=== PATIENT | female | born 1965 | race Caucasian/White ===

== ENCOUNTER 2017-06-27 02:25 | Inpatient (IN) | payer MEDICARE, MEDICAID ==
[~2017-06-27] VITALS: Ht 160 cm; Wt 76.2 kg
[2017-06-27] VITALS (8 sets, daily range): BP systolic 130–162; BP diastolic 70–113; PULSE 68–112; RESP 16–20; O2SAT 92–98
[~2017-06-27 02:25] MED LIST: ALPR2TAB2 PO; AMPH30CA5 PO; ESCI20TA38 PO; ESTR0.3T2 PO; KLO2T PO; METO25TA99 PO; MORP30TA PO; OXYC20TA4 PO; WARF3TAB7 PO
--- NOTE | 2017-06-27 02:51 | ED.REPORT ---
HPI-Abd Pain F 40 and Over Date of Service Jun 27, 2017 ED Provider: Gerardo Lomas MD Pt is a 51 y/o female anticoagulated on Warfarin w/ a hx of superior mesenteric venous thrombosis, HTN, Hep C, chronic pain with opiate dependence, presenting to the ED via EMS c/o gradually worsening now severe diffuse abdominal pain onset 24 hours ago. She c/o associated bloody stool, nausea, vomiting, and diarrhea. Pt denies fever. She is prescribed opiate pain medication and last used them once she began experiencing this pain. She does have a history of heroin use and states she has not used recently. Nursing Notes Stated Complaint: ABDOMEN PAIN Chief Complaint: Female Abdominal Pain Nursing Notes Reviewed: Yes Allergies: Coded Allergies: duloxetine (Verified Allergy, Severe, Hallucinations, 02/22/16) Suicide Ideations mirtazapine (Verified Allergy, Severe, Hallucinations, 02/22/16) Suicide Ideations meloxicam (Verified Allergy, Intermediate, swollen face, puffy cheeks, ) Sulfa (Sulfonamide Antibiotics) (Verified Allergy, Unknown, 02/20/16) lamotrigine (Verified Allergy, Unknown, 06/27/17) meperidine (Verified Allergy, Unknown, 02/20/16) Uncoded Allergies: ANTIDEPRESSANTS (Allergy, Unknown, 12/04/15) Scheduled Escitalopram Oxalate (Escitalopram Oxalate) 20 Mg Tablet 20 MG PO DAILY Estrogens, Conjugated (Premarin) 0.3 Mg Tablet 0.3 MG PO DAILY Metoprolol Succinate ER (Metoprolol Succinate ER) 25 Mg Tab.er.24h 12.5 MG PO QAM Warfarin Sodium (Warfarin Sodium) 3 Mg Tablet 3 MG PO Sun,Sun,Leora,Sun,Sun Warfarin Sodium (Warfarin Sodium) 3 Mg Tablet 6 MG PO Sun,Sun Scheduled PRN Alprazolam (Xanax) 2 Mg Tablet 2 MG PO TID PRN PRN For Anxiety Clonazepam (Clonazepam) 2 Mg Tab 6 MG PO HS PRN PRN For Anxiety Dextroamphetamine/Amphetamine ER (Adderall XR) 30 Mg Cap.er.24h 60 MG PO QAM PRN PRN For narcolepsy Morphine Sulfate (Morphine Sulfate) 30 Mg Tablet 30 MG PO Q12H PRN PRN For Pain oxyCODONE (oxyCODONE) 20 Mg Tablet 20 MG PO Q4H PRN PRN For Pain General Time Seen by MD: 02:50 Chief Complaint Abdominal pain Hx Obtained From: Patient, EMS Arrived By: Ambulance Sudden in Onset?: No Onset Occurred: 21 - 23 hours ago Symptom Duration: Since onset Progression since Onset: Gradually worsening Location: : Diffuse Quality: Painful Severity: Current: Severe Severity: Maximum: Severe Past Medical History Past Medical History Asthma Hypertension narcolepsy subarachnoid hemorrhage Hepatitis C positive Hx superior mesenteric venous thrombosis - anticoagulated on Warfarin Hx prior heroin abuse Hx UTI Depression Anxiety Chronic pain with opiate dependence Past Surgical History Reports: Hysterectomy Reports: Back/neck surgery Smoking History Current Every Day Smoker, Current Some Day Smoker Social History Alcohol Use: Denies alcohol use Drug Use: In recovery Ambulatory Status Independent Review of Systems Constitutional: Denies: Fever GI: Reports: Abdominal pain, Bloody/tarry stool, Diarrhea, Nausea, Vomiting Complete sys rev & neg: except as marked. Physical Exam Vital Signs Vital Signs (First) Date Time Temp Pulse Resp B/P Pulse Ox O2 Delivery O2 Flow Rate FiO2 06/27/17 02:44 36.5 112 20 162/113 98 Room Air Initial VS: Reviewed, Vital signs abnormal Head / Eyes: Atraumatic, Normocephalic Neck: Supple, Full range of motion Extremities: Vascular intact, Neuro intact, No swelling Skin: Warm, Dry, No cyanosis Neurologic: Alert, Oriented, Nonfocal Psychiatric: Mood/affect normal, Behavior normal, Normal thought content General/Constitutional: Awake, Alert, Cooperative, Not toxic appearing Distress / Hydration: Positive: Dehydration moderate, Distress severe ( secondary to pain) Appearance / Presentation: Positive: In pain, Uncomfortable Moaning in pain Respiratory / Chest: Breath sounds NL, Breath sounds = bilat, No respiratory distress, No rales, No rhonchi, No wheezing Cardiovascular: Regular rhythm, Heart sounds NL, No murmurs Heart Rate / Rhythm: Positive: Tachycardia Abdomen: Atraumatic, Soft, No guarding, No distention Tenderness/Guarding/Rebound: Positive: Tender diffuse Pain out of proportion to exam Back: Full range of motion, Painless range of motion Interpretation & Diagnostics Lab Results Interpretation Result Diagram: 06/27/17 0255 06/27/17 0255 Test 06/27/17 02:55 White Blood Count 13.5th/mm3 (3.8-10.1) Red Blood Count 6.23mil/mm3 (3.90-5.20) Hemoglobin 16.7g/dL (12.0-15.6) Hematocrit 48.5% (35.0-46.0) Mean Corpuscular Volume 77.8fL (81-100) Mean Corpuscular Hemoglobin 26.8pg (27.0-35.0) Mean Corpuscular Hemoglobin Concent 34.4% (32.0-37.0) Red Cell Distribution Width 14.0% (12.3-15.4) Platelet Count 238bil/L (150-400) Neutrophils (%) (Auto) 74.0% (40-74) Lymphocytes (%) (Auto) 15.5% (14-46) Monocytes (%) (Auto) 10.0% (4-12) Eosinophils (%) (Auto) 0.1% (0-5) Basophils (%) (Auto) 0.1% (0-3) Prothrombin Time 11.5sec (8.1-12.5) Prothromb Time International Ratio 1.07ratio Sodium Level 133mEq/L (134-144) Potassium Level 4.9mEq/L (3.5-5.2) Chloride Level 98mEq/L (97-108) Carbon Dioxide Level 20mmol/L (18-29) Blood Urea Nitrogen 19mg/dL (6-24) Creatinine 1.00mg/dL (0.57-1.00) Estimat Glomerular Filtration Rate 83mL/min (>59) Glucose Level 145mg/dL (60-99) Calcium Level 10.0mg/dL (8.5-10.1) Magnesium Level 1.9mg/dL (1.6-2.6) Total Bilirubin 0.5mg/dL (0.0-1.2) Aspartate Amino Transf (AST/SGOT) 28U/L (0-50) Alanine Aminotransferase (ALT/SGPT) 17U/L (0-32) Alkaline Phosphatase 78U/L (25-150) Total Protein 7.2g/dL (6.4-8.4) Albumin 3.3g/dL (3.4-5.0) Lipase 19U/L (13-60) CT Abd / Pelvis Interpretation Conclusion: 1. Enteritis involving a few ileal bowel loops in the lower abdomen and pelvis may relate to infection or inflammatory bowel. Mild abdominopelvic ascites. 2. Normal appendix. No free air, abscess, or bowel obstruction. 3. Cholelithiasis. Small renal cysts. Interpreted by Christiano Strong MD Study type: Abdominal CT IV contrast Interpretation / Wet Read by: Interpret - Radiologist Re-Eval/Medical Decision Med Decision/Clinical Course 51-year-old female with severe abdominal pain. She has a history of mesenteric vein thrombosis. She has a mild elevation of her white blood count but no chemistry abnormalities. CT scan of her abdomen showed an area of enteritis and ascites. She was given 2 g of Zosyn. She will be admitted to the hospitalist service for pain control and further evaluation. Source of Hx: Old records, EMS Re-Evaluation/Progress : Time of Eval: 05:32 Re-Evaluation/Progress Note: Pt rechecked. Appears much better, in no distress, pain managed. Informed pt of need for admission. Pt understands and agrees with plan for admission. All questions addressed. Consultation : Referral / Consult Name: Ha Ruby MD Consulted With: Hospitalist Call Returned at: 05:52 Associate Medical Director: Will see patient, Agrees with eval, Agrees with plan, Accepts admit Note: Recommends Zosyn. Counseled Regarding: Diagnosis, Lab results, Need for admission Discharge & Departure Primary Impression: Enteritis Additional Impressions: Anticoagulated on warfarin Diffuse abdominal pain Dehydration Ascites Ascites type: other type Qualified Code: R18.8 - Other ascites Disposition: ADMITTED TO HOSPITAL Discharge Condition All VS Reviewed: Yes Condition: Improved Referrals: STEPHENIE VAZQUEZ (PCP) Scribe Attestation Portions of this note were transcribed by Kenneth Monae. I, Dr. Lomas personally performed the history, physical exam and medical decision-making; I reviewed and confirmed the accuracy of the information in the transcribed note. copies to: STEPHENIE VAZQUEZ Howard L MD Jun 27, 2017 02:51 KENNETH MONAE Jun 27, 2017 02:58
[2017-06-27] MEDS ORDERED: Ondansetron 2 mg/mL 2 mL Inj IVPUSH PRN ×2 (02:55→07:40)
[2017-06-27] MEDS: HYDROmorphone 1 mg/mL Inj IVPUSH PRN ×10 (03:10→18:43)
[2017-06-27 03:18] LABS: BASOPHILS % (AUTO) 0.1 % (0-3); EOSINOPHILS % (AUTO) 0.1 % (0-5); Mean Corpuscular Hemoglobin 26.8 pg (27.0-35.0); Mean Corpuscular Volume 77.8 fL (81-100); Platelet Count 238 bil/L (150-400)
[2017-06-27 04:02] LABS: Magnesium 1.9 mg/dL (1.6-2.6)
[2017-06-27 04:04] LABS: INR 1.07 ratio
[2017-06-27] MEDS ORDERED: Piperacillin-Tazo 3.375 Gm Inj 3.375 GM in Dextrose 5% Minibag Plus 50 ML IV ONE (06:20)
[2017-06-27] MEDS: 0.9% Sodium Chloride 1,000 ML IV SCH ×2 (07:37→17:33)
[2017-06-27] MEDS ORDERED: Polyethylene Glycol (PEG) 17 Gm Powder PO PRN (07:40)
[2017-06-27] MEDS ORDERED: Alum-Mag Hydrox-Simeth 30 mL Suspension PO PRN (07:40)
--- NOTE | 2017-06-27 08:53 | DRSVH ---
PROCEDURE: CT ABDOMEN AND PELVIS WITH CONTRAST (PNL-7102) INDICATIONS: severe abd pain TECHNIQUE: After the administration of intravenous contrast, 5 mm thick sections acquired from the diaphragm to the symphysis. 5 mm coronal and sagittal reformats were acquired. For radiation dose reduction, the following was used: automated exposure control, adjustment of mA and/or kV according to patient siz e. COMPARISON: The CT abdomen and pelvis 12/04/2015 FINDINGS: Preliminary report by [facility] manager radiology Image quality: Excellent. ABDOMEN: Lung bases: Mild bibasilar atelectasis.. Heart size is normal. Solid organs: Liver and spleen are normal in size and enhancement. The spleen measures 7.6 x 10.1 x 12.7 cm. Gallbladder contains a noncalcified gallstone. Normal gallbladder wall thickness. Biliary sy stem is non dilated. Pancreas enhances normally. No adrenal nodules. Kidneys demonstrate normal si ze and enhancement, without hydronephrosis. A few renal hypodensities are unchanged. Minimal left per inephric fat stranding again noted. Peritoneum and bowel: Small bowel shows abnormal wall thickening and adjacent fat stranding in the in fraumbilical midline.. Normal appendix. Normal colon. Moderate free fluid, no free air. Nodes and vessels: No retroperitoneal or mesenteric adenopathy by size criteria. Aorta and inferior vena cava are normal in size. Miscellaneous: Small fat filled umbilical hernia. PELVIS: Genitourinary: Bladder wall thickness is normal. Uterus is surgically absent. No adnexal mass. Miscellaneous: No inguinal hernias or adenopathy. Bones: No suspicious bony lesions. No vertebral body compression fractures. IMPRESSION: 1. Focal ileitis with inflamed small bowel loops inferior to the umbilicus in midline, sparing the te rminal ileum. Moderate ascites. No bowel obstruction or perforation. Normal appendix. 2. Cholelithiasis without evidence of cholecystitis. 3. Status post hysterectomy. Findings are concordant with the preliminary report. Dictated by: Bello Harrison M.D. on 06/27/2017 at 8:38 Approved by: Bello Harrison M.D. on 06/27/2017 at 8:51
[2017-06-27 11:22] LABS: APPEARANCE,URINE HAZY (CLEAR,HAZY); COLOR,URINE YELLOW (YELLOW); OCCULT BLOOD,URINE NEGATIVE (NEGATIVE); UROBILINOGEN,URINE NORMAL (NORMAL)
--- NOTE | 2017-06-27 13:02 | NUR ---
Pain Pt reporting abdominal pain. She has been receiving IV Dilaudid. Left AC IV infiltrated so IV removed. 22 gauge to right forearm. Administered 1mg IV with no abdominal pain relief. Report given to Keanu Cardona on [facility] and adv if he could contact hospitalist to adv pain regimen not alleviated pts discomfort. Pt is AOX3. Pt aware of plan of care.
--- NOTE | 2017-06-27 13:06 | NUR ---
Admission Weight Weight not obtained. Patient came to room in a bed and unable to get patient out of bed due to pain. When pain settles down I will pass onto the [facility] that weight needs to be obtained and bed properly zeroed. Addendum: 06/27/17 at 1308 by CHARLES HARLEY [facility] Amended: Links added.
--- NOTE | 2017-06-27 13:12 | NUR ---
pain uncontrolled pain. per Dr Kamara it is ok to give another 1mg of Dilaudid.
[2017-06-27] MEDS ORDERED: MORP-32 PO (13:15)
[2017-06-27] MEDS ORDERED: ALPR2TAB6 PO (13:16)
[2017-06-27] MEDS ORDERED: AMPH30CA PO (13:17)
--- NOTE | 2017-06-27 13:25 | NUR ---
admit pt is admitted from ER for ABD pain. pt arrived to [facility] complaining of pain 07/05. Per MD ok to give pt another 1mg of dilaudid. tele not started due to the question of its necessity. This RN will ask MD if they feel it is needed. Admit nurse in room with pt.
--- NOTE | 2017-06-27 15:59 | PCM.HPMED ---
Subjective Date of Service Jun 27, 2017 Primary Provider: Admitting Physician: Ha Ruby MD Primary Care Physician: Asha Napier Attending Physician: Ha Ruby MD Admit Status: From the Emergency Department, Full Admit, Remote Telemetry Chief Complaint: Periumbilical abdominal pain/one day Bloody diarrhea/one day History of Present Illness: 51-year-old lady with past medical history of superior mesenteric venous thrombosis on warfarin, HTN, narcolepsy, history of Hep C completed [facility], chronic pain with opiate dependence, history of intracranial bleeding presented to the emergency room due to epigastric abdominal pain and bloody data of one day. Patient states yesterday she developed sudden onset, periumbilical, intermittent , stabbing severe pain . She also noted several episodes of bloody watery diarrhea yesterday which prompted ED visit. Denies fever. Denies cough. Denies dyspnea. Ed course: Initial HR 112, BP 162/113, WBC 13.5, hemoconcentrated hemoglobin at 16.7, pro calcitonin elevated at 2.36 Sodium 133, lactate negative at 0.8, INR 1.07 CT Focal ileitis with inflamed small bowel loops inferior to the umbilicus in midline, sparing the terminal ileum Zosyn given and admission requested Review of Systems: Comprehensive review of systems performed, pertinent positives and negatives included in history of present illness Allergies Coded Allergies: duloxetine (Verified Allergy, Severe, Hallucinations, 06/27/17) Suicide Ideations mirtazapine (Verified Allergy, Severe, Hallucinations, 06/27/17) Suicide Ideations meloxicam (Verified Allergy, Intermediate, swollen face, puffy cheeks, 06/27) Sulfa (Sulfonamide Antibiotics) (Verified Allergy, Unknown, 06/27/17) lamotrigine (Verified Allergy, Unknown, 06/27/17) meperidine (Verified Allergy, Unknown, 06/27/17) Uncoded Allergies: ANTIDEPRESSANTS (Allergy, Unknown, 12/04/15) Home Medications Escitalopram Oxalate (Escitalopram Oxalate) 20 Mg Tablet 20 MG PO DAILY Estrogens, Conjugated (Premarin) 0.3 Mg Tablet 0.3 MG PO DAILY Metoprolol Succinate ER (Metoprolol Succinate ER) 25 Mg Tab.er.24h 12.5 MG PO QAM Warfarin Sodium (Warfarin Sodium) 3 Mg Tablet 3 MG PO Mon,Wed,Leora,Fri,Sun Warfarin Sodium (Warfarin Sodium) 3 Mg Tablet 6 MG PO Tue,Sat Scheduled PRN Alprazolam (Xanax) 2 Mg Tablet 2 MG PO TID PRN PRN For Anxiety Clonazepam (Clonazepam) 2 Mg Tab 6 MG PO HS PRN PRN For Anxiety Dextroamphetamine/Amphetamine ER (Adderall XR) 30 Mg Cap.er.24h 60 MG PO QAM PRN PRN For narcolepsy Morphine Sulfate (Morphine Sulfate) 30 Mg Tablet 30 MG PO Q12H PRN PRN For Pain oxyCODONE (oxyCODONE) 20 Mg Tablet 20 MG PO Q4H PRN PRN For Pain PMH Asthma Hypertension narcolepsy subarachnoid hemorrhage Hepatitis C positive Hx superior mesenteric venous thrombosis - anticoagulated on Warfarin Hx prior heroin abuse Hx UTI Depression Anxiety Chronic pain with opiate dependence Surgical History Hysterectomy Back/neck surgery Family History grandma with stroke Multiple family members with history of DVTs including 2 grandparents and uncles Social History Hx Alcohol Use: No Hx Substance Use: No Hx Tobacco Use: Yes Smoking Status: Current Every Day Smoker, Current Some Day Smoker Exam Vital Signs Vital Sign - Last Date Time Temp Pulse Resp B/P Pulse Ox O2 Delivery O2 Flow Rate FiO2 06/27/17 13:53 Supplement Oxygen 06/27/17 13:05 36.8 87 20 155/95 93 06/27/17 09:47 2.00 Exam Gen. patient is lying comfortably in hospital bed HEENT: Head is normocephalic atraumatic, Pupils equal and reactive, extraocular movements intact, Lungs clear to auscultation bilaterally Heart regular rate and rhythm without murmurs gallops or rubs Abdomen infraumbilical tenderness. Extremities pulses are present dorsalis pedis posterior tibialis and radial. tSkin is warm and dry there are no rashes, Psych alert and oriented to person place and time Neuro cranial nerves II through XII are grossly intact Lymph: There is no lymphadenopathy appreciated in the cervical supra infraclavicular regions : no leggett Lab and Diagnostics Result Diagram: 06/27/1725406/27/17254 X-Rays, CTs and MRIs PROCEDURE: CT ABDOMEN AND PELVIS WITH CONTRAST ([id number]) INDICATIONS: severe abd pain IMPRESSION: 1. Focal ileitis with inflamed small bowel loops inferior to the umbilicus in midline, sparing the terminal ileum. Moderate ascites. No bowel obstruction or perforation. Normal appendix. 2. Cholelithiasis without evidence of cholecystitis. 3. Status post hysterectomy. Findings are concordant with the preliminary report. Dictated by: Bello Harrison M.D. on 06/27/2017 at 8:38 Assessment & Plan 51-year-old lady with past medical history of superior mesenteric venous thrombosis on warfarin, HTN, narcolepsy, history of Hep C completed [facility], chronic pain with opiate dependence, history of intracranial bleeding presented to the emergency room due to epigastric abdominal pain and bloody data of one day. # Acute Ileitis ,poa -Infectious versus ischemic -Most likely infectious given leukocytosis and elevated procal . Ischemic due to distal visceral venous thromboses is also possible given his history of mesenteric thromboses, subtherapeutic INR, sudden onset of symptoms, bloody diarrhea, pain out of proportion to tenderness. Normal lactate and bicarbonate is against ischemic process. hold of empiric heparin drip . Infection can be due to C.dif or others -She received Zosyn in ED, continue with that -Stool for C. difficile requested. Hold off empiric by mouth vancomycin -NS at 100ml /h -trend lactate and will start heparin drip and consult surgery if abnormal. Continue home warfarin for now -Pain control with Dilaudid, Zofran when necessary for nausea -Consulted GI # History of mesenteric venous thromboses with subtherapeutic INR -Resume warfarin # History of hepatitis C, completed treatment and presumed cured #History of hypertension -Resume home meds #History of opioid dependence -Pain control as above #History of asthma, stable #History of narcolepsy -Continue adderral Patient admitted under inpatient status with expected length of stay > 2 midnights for severity of present symptoms, complexities of treatment plan and risk for adverse events full code Resuscitation Status: CPR: Attempt Resuscitation copies to: TAYLOR,Cristofer Levy MD Jun 27, 2017 15:59
[2017-06-27 16:38] LABS: BASOPHILS % (AUTO) 0.2 % (0-3)
[2017-06-27 16:45] LABS: EOSINOPHILS % (AUTO) 0.2 % (0-5); MONOCYTES % (AUTO) 10.7 % (4-12); Mean Corpuscular Hemoglobin 26.9 pg (27.0-35.0); NEUTROPHILS % (AUTO) 69.6 % (40-74); Platelet Count 216 bil/L (150-400)
[2017-06-27] MEDS: Piperacillin-Tazo 3.375 Gm Inj 3.375 GM in Dextrose 5% Minibag Plus 50 ML IV SCH ×2 (16:59→23:37)
--- NOTE | 2017-06-27 17:36 | PCM.CHPMED ---
Subjective Date of Service: Jun 27, 2017 Provider requesting consult: Cristofer Kamara MD Primary Physician: Admitting Physician: Ha Ruby MD Primary Care Physician: Asha Napier Attending Physician: Ha Ruby MD Chief Complaint: Chief Complaint: Abdominal pain, nausea, vomiting, diarrhea History of Present Illness: Gastroenterology Consult Note Grace Pagan is a 51-year-old female with past medical history significant for superior mesenteric venous thrombosis, hepatitis C status post Harvoni treatment, subarachnoid hemorrhage, and chronic opioid use who presents with nausea, vomiting, and diarrhea. Patient reports that symptoms began on Sunday very shortly after eating prawns. Patient states that pain has been between 8- 10 out of 10 since Sunday. It is a constant pain that is bandlike at the level of the umbilicus. There are no alleviating factors and appears that movement somewhat worsens the pain. Pain has slightly improved since being in the hospital with IV pain medications. Of note patient's friend was also having the problems and had some similar but more mild symptoms that resolved without intervention. She has not had any oral intake since Sunday as she has not been able to keep anything down. She states that her last episode of emesis and diarrhea was just prior to the ambulance arriving around 0300 today. Patient is typically constipated as she is on chronic narcotics so this frequent stooling is very atypical. She notes that there is blood when she wipes but nothing mixed in with her stool. She denies black tarry stools or hematemesis. Patient has no family history of inflammatory bowel disease, colon cancer, or celiac disease. She has never had a colonoscopy or an EGD. Patient denies any recent weight loss, fever, or chills. Review of Systems: Comprehensive review of systems was conducted with the patient and found to be negative except as noted above in HPI. PMH Past Medical History Asthma Hypertension Narcolepsy Subarachnoid hemorrhage Hepatitis C positive s/p Harvoni treatment Superior mesenteric venous thrombosis - subtherapeutic on Warfarin Prior heroin abuse Depression Anxiety Chronic pain with opiate dependence Surgical History Hysterectomy Back/neck surgery Home Medications Escitalopram Oxalate (Escitalopram Oxalate) 20 Mg Tablet 20 MG PO DAILY Estrogens, Conjugated (Premarin) 0.3 Mg Tablet 0.3 MG PO DAILY Metoprolol Succinate ER (Metoprolol Succinate ER) 25 Mg Tab.er.24h 12.5 MG PO QAM Warfarin Sodium (Warfarin Sodium) 3 Mg Tablet 3 MG PO Mon,Wed,Leora,Fri,Sun Warfarin Sodium (Warfarin Sodium) 3 Mg Tablet 6 MG PO Tue,Sun Scheduled PRN Alprazolam (Xanax) 2 Mg Tablet 2 MG PO TID PRN PRN For Anxiety Clonazepam (Clonazepam) 2 Mg Tab 6 MG PO HS PRN PRN For Anxiety Dextroamphetamine/Amphetamine ER (Adderall XR) 30 Mg Cap.er.24h 60 MG PO QAM PRN PRN For narcolepsy Morphine Sulfate (Morphine Sulfate) 30 Mg Tablet 30 MG PO Q12H PRN PRN For Pain oxyCODONE (oxyCODONE) 20 Mg Tablet 20 MG PO Q4H PRN PRN For Pain Allergies: Coded Allergies: duloxetine (Verified Allergy, Severe, Hallucinations, 06/27/17) Suicide Ideations mirtazapine (Verified Allergy, Severe, Hallucinations, 06/27/17) Suicide Ideations meloxicam (Verified Allergy, Intermediate, swollen face, puffy cheeks, 06/27) Sulfa (Sulfonamide Antibiotics) (Verified Allergy, Unknown, 06/27/17) lamotrigine (Verified Allergy, Unknown, 06/27/17) meperidine (Verified Allergy, Unknown, 06/27/17) Uncoded Allergies: ANTIDEPRESSANTS (Allergy, Unknown, 12/04/15) Family History Family History Grandma with CVA Multiple family members with history of DVTs including 2 grandparents and uncles Social History Hx Alcohol Use: NoHx Substance Use: NoHx Tobacco Use: Yes Smoking Status: Current Every Day Smoker Current Some Day Smoker Exam Vital Signs Vital Sign - Last Date Time Temp Pulse Resp B/P Pulse Ox O2 Delivery O2 Flow Rate FiO2 06/27/17 16:57 36.9 75 20 152/87 95 Room Air 06/27/17 09:47 2.00 General: Alert, Oriented X3, Moderate Distress Head: Normal Eyes: Scleral Anicteric Mouth: Mucous Membranes Dry Neck: Supple Cardiovascular: Regular Rate/Rhythm, No Murmurs/Rubs/Gallops Pulses: Radial Abdomen: Tender, Non-distended, Guarding, Normoactive bowel tones, Other ( rebound) Musculoskeletal: Unremarkable Extremities: No cyanosis/clubbing/edma bilat Neurological: Grossly Neurologically Intact, Cranial Nerves 2-12 Intact Lab and Diagnostics Result Diagram: 06/27/17 1620 06/27/17 1620 X-Rays, CTs and MRIs CT ABDOMEN AND PELVIS WITH CONTRAST IMPRESSION: 1. Focal ileitis with inflamed small bowel loops inferior to the umbilicus in midline, sparing the terminal ileum. Moderate ascites. No bowel obstruction or perforation. Normal appendix. 2. Cholelithiasis without evidence of cholecystitis. 3. Status post hysterectomy. Findings are concordant with the preliminary report. Dictated by: Bello Harrison M.D. on 06/27/2017 at 8:38 Approved by: Bello Harrison M.D. on 06/27/2017 at 8:51 Assessment & Plan Assessment Grace Pagan is a 51-year-old female with past medical history significant for superior mesenteric venous thrombosis, hepatitis C status post Harvoni treatment, subarachnoid hemorrhage, and chronic opioid use who presents with nausea, vomiting, and diarrhea. Patient's history and physical exam is concerning for ischemic pathology but with her recent ingestion of prawns just prior to symptom onset infectious causes cannot be excluded. Dr. Spear was contacted and we discussed the CT findings of focal ileitis with inflamed small bowel inferior to the umbilicus in midline. We also discussed her history of SMA venous thrombosis and to Dr. Spear's best assessment the celiac,, SMA, and SMV have no obvious sign of occlusion. He suggested that possibly a doppler ultrasound may provide additional information but is rather skeptical of the benefit. Patient's lactic acid was 0.8 initially and repeat was 0.9. She has a mild leukocytosis with normal differential interestingly but an elevated procalcitonin. Due to the patient's significnat pain and peritoneal signs on exam case was also discussed with surgeon, Dr. Weathers, and he agrees to see the patient. Recommendations: - Patient with peritoneal signs. Surgery has been notified. - Recommend starting Lovenox as patient is subtherapeutic - D-dimer ordered and pending. - Awaiting stool sample from patient to send for PCR. - Continue to monitor lactic acid. - Pain management per primary team. - May consider abdominal doppler ultrasound although unsure that this will add to the clinical picture Thank you for involving us in this patient's care. Problems: Pain Evaluation: Pain not Controlled Resuscitation Status: CPR: Attempt Resuscitation Attending Statement Patient seen and examined. Agree with assessment and plan as described by Dr Ball. Exam was fairly impressive. I discussed case with Dr Weathers who agreed to see her. D-dimer was markedly elevated and (along with Dr Weathers) recommended anticoagulation Although no obvious SMV thrombosis is seen at CT with patient's history and the acute presentation mesenteric venous thrombosis - perhaps a little closer to the bowel remains in the differential. Acute infectious gastroenteritis remains in the differential. The normal serial lactate is somewhat reassuring, but an element of closed loop obstruction still needs to be considered. Based on the acute presentation, the possibility of crohn's would be considered quite unlikely. Stool PCR pending next bowel movement. JAMES BALL DO Jun 27, 2017 17:35 Ron Ley MD Jun 27, 2017 23:03
[2017-06-27] MEDS ORDERED: Heparin 5,000 Unit/mL Inj IVPUSH PRN (17:45)
[2017-06-27] MEDS: Heparin 25K Unit/500mL 0.45 NS 25,000 UNIT in IV Premix 1 EACH IV SCH (18:11)
[2017-06-27] MEDS ORDERED: Morphine ER 15 mg (MS Contin) Tablet PO SCH (20:30)
--- NOTE | 2017-06-27 20:36 | NUR ---
Case Management: ROSENDO explained to patient at 2024, all questions answered. Signed copy placed in chart, copy given to patient. Kathy Coe RN
--- NOTE | 2017-06-27 23:03 | CONS ---
[address] [address] CONSULTATION REPORT PATIENT: MARIO STARR : 1965 MR#: [id number] ADMIT: 06/27/2017 JOB ID: [id number] DATE OF SERVICE: 06/27/2017 CHIEF COMPLAINT: A 51-year-old lady with severe abdominal pain, seen in consultation at the request of Ron Ley MD, and Cristofer Kamara MD. HISTORY OF PRESENT ILLNESS: The patient is a 51-year-old lady who was diagnosed with superior mesenteric venous thrombosis around four years ago in [place] when she went to the hospital with abdominal pain and was started on chronic anticoagulation with warfarin. She did not have any operations at that time. Since then, she has had intermittent episodes of abdominal pain but nothing like what she has now prompting her to come to the emergency department last night. She developed severe abdominal pain with violent vomiting and bloody diarrhea and she is unable to take her warfarin for the last three days because of the illness. Before that, she believes her INR was 1.9. Any movement seems to exaggerate her pain. She has not had any more vomiting or bowel movements since she came to the emergency department. OTHER MEDICAL PROBLEMS: 1. Asthma. 2. Hypertension. 3. Epilepsy. 4. Subarachnoid hemorrhage. 5. Hepatitis C treated with Harvoni. 6. Depression. 7. Anxiety. 8. Chronic pain. PRIOR OPERATIONS: 1. Hysterectomy. 2. Back surgery. FAMILY HISTORY: Grandmother had stroke. Multiple family members have history of deep vein thrombosis, including two grandparents and uncles. SOCIAL HISTORY: She does smoke. She does not consume alcohol. She had problems with IV drug abuse a long time ago in her teens, but she has been clean for a long time. MEDICATIONS AT HOME: 1. Escitalopram. 2. Estrogens. 3. Metoprolol. 4. Warfarin. 5. Alprazolam. 6. Clonazepam. 7. Dextroamphetamine. 8. Morphine. 9. Oxycodone. ALLERGIES: 1. DULOXETINE. 2. MIRTAZAPINE. 3. MELOXICAM. 4. SULFA. 5. LAMOTRIGINE. 6. MEPERIDINE. REVIEW OF SYSTEMS: A 12-point review of systems negative other than the pertinent positives noted in the history of present illness and other medical problems. INVESTIGATIONS: WBC 12.5, hemoglobin 14.7, platelet count 216. Creatinine 1.02, glucose 118. Normal liver function studies. Albumin 2.9. Lactic acid 0.9. Procalcitonin 2.36. INR 1.07. D-dimer 12.44. CT abdomen and pelvis June 27, 2017, showed focal ileitis with inflamed small bowel loops sparing the terminal ileum, moderate ascites. No obvious bowel obstruction or perforation. Normal looking appendix. Cholelithiasis. PHYSICAL EXAMINATION: GENERAL: A 51-year-old lady in moderate distress. Temperature 36.9, pulse 84, respiratory rate 16, blood pressure 156/97, saturating 92% on room air. Eyes: Normal pupils, conjunctivae. Ears, nose, and throat: Normal external appearance. Neck: No adenopathy or jugular venous distention. Respiratory: Normal effort, clear to auscultation. Cardiovascular: Regular rate and rhythm. Chest/breast exam deferred. Gastrointestinal: Diffusely tender to palpation, more so in the lower abdomen with signs of peritonitis. Neurologic: No gross deficits. Psych: Alert, appropriate. Musculoskeletal: Normal strength in extremities. ASSESSMENT AND PLAN: A 51-year-old lady with focal small bowel inflammation highly concerning for mesenteric venous thrombosis in small vessels. She is prone to thrombotic episodes so would recommend immediate anticoagulation with heparin, n.p.o., broad-spectrum antibiotics, and pain control with IV pain medication. We will follow her with two view abdominal x-rays every 12 hours to rule out perforation. It might also be worth looking into other possible sources of embolism, including looking into /obtaining an echocardiogram. At this point, she is in a lot of pain and we will follow her clinically, but if she deteriorates or does not improve with anticoagulation she might very well require operative intervention to evaluate her bowel and even potentially leading to a bowel resection. I explained the plan to the patient and she understands and is comfortable with that. We will continue to follow closely, but please call us if there are any questions or concerns. KAY
[2017-06-28] VITALS (9 sets, daily range): BP systolic 135–173; BP diastolic 78–97; PULSE 66–76; RESP 14–20; O2SAT 92–97
[2017-06-28] MEDS: HYDROmorphone PCA 0.2 mg/mL 30 mL Inj IV PRN ×3 (00:13→20:33)
--- NOTE | 2017-06-28 03:51 | NUR ---
Pain Pt continued to complain of pain with PO 20mg Roxicodone. Began DOOR PANELER with 0.4 mg dose, 10 min lockout and 2.4mg/hr max dose, with good results. Pt slept well with pain machine. Up to bedside commode, noted pain with movement.
[2017-06-28 06:49] LABS: BASOPHILS % (AUTO) 0.3 % (0-3); EOSINOPHILS % (AUTO) 1.6 % (0-5); MONOCYTES % (AUTO) 8.8 % (4-12); Mean Corpuscular Hemoglobin 27.1 pg (27.0-35.0); Mean Corpuscular Volume 81.6 fL (81-100); NEUTROPHILS % (AUTO) 62.5 % (40-74); Platelet Count 193 bil/L (150-400)
[2017-06-28 07:01] LABS: INR 1.24 ratio
[2017-06-28 07:12] LABS: Magnesium 1.9 mg/dL (1.6-2.6)
[2017-06-28] MEDS ORDERED: Estrogens Conjugated 0.3 mg Tablet PO SCH (08:30)
[2017-06-28] MEDS ORDERED: MeTOProlol XL 25 mg ER24 Tablet PO SCH (08:30)
--- NOTE | 2017-06-28 08:30 | NUR ---
Heparin gtt/IV IV infiltrated this AM. Heparin gtt stopped at approx. 0730. 0600 Heparin PTT 51.0, infusion running at 21 units/kg/hr when stopped. Pharmacist consulted. Instructed to resume Heparin gtt at current dose and draw Heparin PTT 2 hours after resuming. No IV access at this time. IV therapy contacted. Addendum: 06/28/17 at 0955 by SID HERRON RN [id number]: Heparin gtt resumed at 21 units/kr/hr.
--- NOTE | 2017-06-28 08:53 | DRSVH ---
PROCEDURE: X-RAY ABDOMEN WITH ERECT AND/OR DECUBITUS VIEWS ([id number]) INDICATIONS: ? perforation TECHNIQUE: 2 views of the abdomen were acquired. COMPARISON: [facility], CT, CT ABD PELVIS W CON, 06/27/2017, 4:29. FINDINGS: Surgical changes and devices: None. Bowel: There is suggestion of a small amount of subdiaphragmatic free air in the left upper quadrant . There are multiple nondistended small bowel loops measuring up to 2.5 cm in the mid abdomen with a ssociated air-fluid levels and a left-sided predominance. There is a paucity of gas in the colon. Soft tissues: No suspicious calcifications. The visualized lung bases demonstrate a small left pleur al effusion with bibasilar consolidation or atelectasis, left greater than right. Bones: No suspicious bony abnormalities. IMPRESSION: 1. Lucency in the left upper quadrant beneath the left hemidiaphragm suspicious for pneumoperitoneum but evaluation is limited due to left basilar lung findings. Recommend a right lateral decubitus vi ew for further evaluation. Findings were discussed with Dr. Kuhn on 06/28/17 8:45 AM. 2. Mildly dilated small bowel loops with air-fluid levels and a paucity of gas in the colon compatib le with small bowel obstruction likely related to the segmental enteritis seen on CT. Dictated by: Juan Luis Harris M.D. on 06/28/2017 at 8:36 Approved by: Juan Luis Harris M.D. on 06/28/2017 at 8:51
[2017-06-28] MEDS: Piperacillin-Tazo 3.375 Gm Inj 3.375 GM in Dextrose 5% Minibag Plus 50 ML IV SCH ×2 (09:49→17:33)
[2017-06-28] MEDS: 0.9% Sodium Chloride 1,000 ML IV SCH ×2 (09:49→13:37)
--- NOTE | 2017-06-28 10:59 | NUR ---
Case Management: MONCHO delivered and explained to pt. and son of patient at bedside. Signed original placed in chart. Copy left at bedside. Kaye Muir RN Addendum: 06/28/17 at 1102 by KAYE MUIR CM Disregard note: wrong patient
--- NOTE | 2017-06-28 11:02 | NUR ---
Case Management: [facility] delivered and explained to pt. Signed original placed in chart. Copy left at bedside. Kaye Martinez RN
--- NOTE | 2017-06-28 11:07 | PCM.PNSURG ---
Subjective Date of Service: Jun 28, 2017 Date of Service: Jun 28, 2017 Visit Information: Reason for Visit Enteritis Surgery/Surgery Date Post-Op Day # Date of Admission: Jun 27, 2017 at 11:07 Hospital Day # Subjective: Gastroenterology Progress Note Patient's pain improved overnight with IV pain medication and initiation of anticoagulation. Patient has not had any further emesis. She also has not been able to produce a stool sample to send for PCR. This morning she notes dull aching headache that she thinks is due to dehydration. She states her pain is closer to a 6 out of 10 at this time. Objective Vital Sign- Last 8 Hours Date Time Temp Pulse Resp B/P Pulse Ox O2 Delivery O2 Flow Rate FiO2 06/28/17 09:44 36.4 74 18 166/90 92 Room Air 06/28/17 05:02 Supplement Oxygen 06/28/17 04:34 36.3 69 18 135/80 94 Room Air Intake and Output- Last 8 Hour 06/28/17 Cumulative From/Thru 07:00 06/27/17 02:44 - 06/28/17 06:28 Intake Total 1221 ml 1443 ml Output Total 200 ml 300 ml Balance 1021 ml 1143 ml Intake Oral 100 ml 322 ml IV Total 1121 ml 1121 ml Output Urine Total 200 ml 300 ml General: Alert, Oriented X3, Mild Distress Neck: Supple Lungs: Clear to Auscultation Heart: Regular Rate/Rhythm, No Murmurs/Rubs/Gallops Abdomen: Normoactive bowel tones, Other (diffusely tender to palpation greatest periumbilically, mild guarding, but no rebound) Extremities: Distal Pulses Palpable, Warm Neuro: Cranial Nerves 2-12 nl, Grossly Neurologically Intact Catheters: None Result Diagram: 06/28/17 0600 06/28/17 0600 Assessment & Plan Impression Grace Pagan is a 51-year-old female with past medical history significant for superior mesenteric venous thrombosis, hepatitis C status post Harvoni treatment, subarachnoid hemorrhage, and chronic opioid use who presents with nausea, vomiting, and diarrhea. Patient's history and physical exam is concerning for ischemic pathology but with her recent ingestion of prawns just prior to symptom onset infectious causes cannot be excluded. Dr. Spear was contacted and we discussed the CT findings of focal ileitis with inflamed small bowel inferior to the umbilicus in midline. We also discussed her history of SMA venous thrombosis and to Dr. Spear's best assessment the celiac,, SMA, and SMV have no obvious sign of occlusion. He suggested that possibly a doppler ultrasound may provide additional information but is rather skeptical of the benefit. Patient's lactic acid was 0.8 initially and repeat was 0.9. She has a mild leukocytosis with normal differential interestingly but an elevated procalcitonin. Due to the patient's significnat pain and peritoneal signs on exam case was also discussed with surgeon, Dr. Weathers, and he agrees to see the patient. Recommendations: - Patient's abdominal exam has improved overnight. - Abdominal x-ray taken yesterday evening showed possible left-sided pneumoperitoneum but difficult to determine if this is artifact from the lung. Repeat abdominal x-ray pending this morning. - D-dimer was elevated. Subsequently, heparin drip started last night on and has continued. - Awaiting stool sample from patient to send for PCR. - Repeat lactic acid if pain or abdominal exam worsens. - Pain management per primary team. - Surgery following and recommends serial of abdominal x-rays every 12 hours. Appreciate recommendations. Thank you for involving us in this patient's care. We will continue to follow. Problems: Resuscitation Status: CPR: Attempt Resuscitation Attending Statement: Patient seen and examined. Agree with assessment and plan as described by Dr Ball Overall, improved from yesterday. No free air on KUB. No guarding on exam this afternoon. Would recommend a trial of clear liquid diet. JAMES BALL DO Jun 28, 2017 11:07 Ron Ley MD Jun 28, 2017 23:10
--- NOTE | 2017-06-28 11:37 | DRSVH ---
PROCEDURE: X-RAY ABDOMEN DECUBITUS, RIGHT INDICATIONS: BOWEL PERFORATION TECHNIQUE: One view of the abdomen acquired. COMPARISON: [facility], CR, XR ABD W ERECT + OR DECUB 2 VW, 06/28/2017, 7:22. FINDINGS: Surgical changes and devices: None. Bowel: Persistent small bowel dilatation present and there is shorter fluid levels on the decubitus f ilm. There is a region of featureless radiolucency between bowel loops on the right lateral decubitu s which may represent free intraperitoneal gas. Soft tissues: No suspicious abdominal calcifications. Visualized solid organ contours appear normal in size. Bones: No suspicious bony lesions. IMPRESSION: 1. Persistent small bowel mild gaseous distention and air-fluid levels suggesting small bowel obstruc tion. There is a region of featureless radiolucent gas between 2 bowel loops on the right lateral dec ubitus film which may represent free intraperitoneal gas. Recommend obtaining left lateral decubitus abdominal film for further assessment. Dictated by: Chucho Ponce [facility] Interpreted: Luisito Garcia MD on 06/28/2017 at 11:20 Approved by: Luisito Garcia M.D. on 06/28/2017 at 11:35
--- NOTE | 2017-06-28 12:01 | PCM.PNMED ---
Subjective Date of Service Jun 28, 2017 Subjective Patient seen and examined today. Pain better controlled, still there. Vitals stable. Exam Vital Signs Vital Sign - Last Date Time Temp Pulse Resp B/P Pulse Ox O2 Delivery O2 Flow Rate FiO2 06/28/17 09:44 36.4 74 18 166/90 92 Room Air 06/27/17 09:47 2.00 Intake and Output 06/27/17 06/27/17 06/28/17 Cumulative From/Thru 15:00 23:00 07:00 06/27/17 02:44 - 06/28/17 06:28 Intake Total 222 ml 1221 ml 1443 ml Output Total 100 ml 200 ml 300 ml Balance 122 ml 1021 ml 1143 ml Intake Oral 222 ml 100 ml 322 ml IV Total 1121 ml 1121 ml Output Urine Total 100 ml 200 ml 300 ml Exam Gen. patient is lying comfortably in hospital bed Lungs clear to auscultation bilaterally Heart regular rate and rhythm without murmurs gallops or rubs Abdomen infraumbilical tenderness. Extremities pulses are present dorsalis pedis posterior tibialis and radial. tSkin is warm and dry there are no rashes Lab and Diagnostics Result Diagram: 06/28/17 0600 06/28/17 0600 X-Rays, CTs and MRIs PROCEDURE: CT ABDOMEN AND PELVIS WITH CONTRAST ([id number]) INDICATIONS: severe abd pain IMPRESSION: 1. Focal ileitis with inflamed small bowel loops inferior to the umbilicus in midline, sparing the terminal ileum. Moderate ascites. No bowel obstruction or perforation. Normal appendix. 2. Cholelithiasis without evidence of cholecystitis. 3. Status post hysterectomy. Findings are concordant with the preliminary report. Dictated by: Bello Harrison M.D. 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 # Acute Ileitis ,poa -Infectious versus ischemic -She received Zosyn in ED, continue with that -Stool for C. difficile requested. Hold off empiric by mouth vancomycin -NS at 100ml /h -trend lactate (normal so far) and on heparin drip - Surgery on board , serial abd series , if concerns for perforation, will need surgery -Pain control with Dilaudid, Zofran when necessary for nausea -GI on board appreciate recs. # History of mesenteric venous thromboses with subtherapeutic INR -on heparin drip # History of hepatitis C, completed treatment and presumed cured #History of hypertension -Resume home meds #History of opioid dependence -Pain control as above #History of asthma, stable #History of narcolepsy -Continue adderral #Anxiety - takes oral anti anxiety - will give iv prn for now as patient is npo Patient admitted under inpatient status with expected length of stay > 2 midnights for severity of present symptoms, complexities of treatment plan and risk for adverse events full code Resuscitation Status: CPR: Attempt Resuscitation Time spent 45 mins Dave Kuhn MD Jun 28, 2017 12:01
--- NOTE | 2017-06-28 13:13 | PCM.PNSURG ---
Subjective Date of Service: Jun 28, 2017 Date of Service: Jun 28, 2017 Visit Information: Reason for Visit Enteritis Surgery/Surgery Date Post-Op Day # Date of Admission: Jun 27, 2017 at 11:07 Hospital Day # Subjective: No acute overnight events Pain has greatly improved this morning No longer experiencing nausea No flatus or stool since admission Afebrile Objective Vital Sign- Last 8 Hours Date Time Temp Pulse Resp B/P Pulse Ox O2 Delivery O2 Flow Rate FiO2 06/28/17 12:34 14 96 06/28/17 09:44 36.4 74 18 166/90 92 Room Air 06/28/17 08:00 76 Intake and Output- Last 8 Hour 06/28/17 Cumulative From/Thru 07:00 06/27/17 02:44 - 06/28/17 06:28 Intake Total 1221 ml 1443 ml Output Total 200 ml 300 ml Balance 1021 ml 1143 ml Intake Oral 100 ml 322 ml IV Total 1121 ml 1121 ml Output Urine Total 200 ml 300 ml General: Alert, Cooperative, No Acute Distress Neck: Supple Lungs: Normal Air Movement Abdomen: Other (Tender to deep palpation diffusely, soft, and mildly distended. No longer peritonitic. 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 Today, her pain has improved, she is no longer nauseated and her abdominal exam is reassuring. Problems: Plan - No indication for operation at this time given her improving abdominal exam - Q12 hour plain films of the abdomen to evaluate for free air - Continue heparin gtt - Continue broad spectrum antibiotics - NPO except icechips and essential medications - Please page or call with any questions or concerns. Resuscitation Status: CPR: Attempt Resuscitation Johny Cooper MD Jun 28, 2017 13:13 Chava Weathers MD Jun 28, 2017 17:00
--- NOTE | 2017-06-28 13:15 | DRSVH ---
PROCEDURE: X-RAY ABDOMEN DECUBITUS, LEFT INDICATIONS: BOWEL PERFORATION TECHNIQUE: One view of the abdomen acquired. COMPARISON: [facility], CR, XR ABD DECUBITUS RT, 06/28/2017, 9:14. FINDINGS: Surgical changes and devices: None. Bowel: Left lateral decubitus abdominal plain film again demonstrates mild gaseous distention of smal l bowel with short air-fluid levels. No definite free intraperitoneal gas is seen. IMPRESSION: No free intraperitoneal gas is identified. If symptoms persist, consider repeat CT. Dictated by: Chucho Ponce RR Interpreted: Luisito Garcia MD on 06/28/2017 at 12:29 Approved by: Luisito Garcia M.D. on 06/28/2017 at 13:13
[2017-06-28] MEDS ORDERED: diphenhydrAMINE-Zinc 2%-0.1% 30 Gm Cream TOPICAL PRN (13:30)
[2017-06-28] MEDS ORDERED: Amphetamines (Mixed) XR 10 mg ER24 Capsule PO SCH (13:55)
[2017-06-28] MEDS: Heparin 25K Unit/500mL 0.45 NS 25,000 UNIT in IV Premix 1 EACH IV SCH (15:17)
--- NOTE | 2017-06-28 17:33 | NUR ---
Social Work-initial assessment: Data:See initial assessment. pt is a 51 y/o female who was admitted on 06/27/17 for enteritis per H&P. Pt's insurance is [employer] and PCP is [facility]. EMR Reviewed. Pt's readmission score is 4-high risk. SW met with pt at bedside to discuss discharge planning, SW role explained. Pt is alert and oriented x3. Pt resides at home alone in a single level home where she remains independent with ADLs. Pt does drive and has use a cane at baseline. Pt has no HH or SNF history. Pt has no adjunct faculty for medical terminology care insurance or VA benefits. SW discussed DPOA/ advanced directive, pt has not completed this and declined information. Pt has [facility] caregivers, but cannot remember her CM's name. SW to call [facility] tomorrow and find out and fax information. Pt's neighbor to provide transport home. SW provided pt with discharge planning checklist and encouraged her to call with any questions, phone number provided. No anticipated discharge needs. SW will continue to follow if needs arise. Assessment:pt who is independent at baseline. Plan:Pt to discharge home when medically stable via POV. Pt to continue with [facility]. No anticipated discharge needs. SW will continue to follow if needs arise. VALENTINO Blair Addendum: 06/28/17 at 1739 by GLORIA ARANA SS Amended: Links added.
--- NOTE | 2017-06-28 20:16 | NUR ---
Ptt Pt on heparin drip, Ptt back at 167.6. Drip discontinued at 2004, paged night hospitalist with information. Will get new Ptt scheduled.
--- NOTE | 2017-06-28 20:28 | DRSVH ---
PROCEDURE: X-RAY ABDOMEN WITH ERECT AND/OR DECUBITUS VIEWS ([id number]) INDICATIONS: 51 year-old female with mesenteric thrombosis. TECHNIQUE: 2 views of the abdomen were acquired. COMPARISON: [facility], CT, CT ABD PELVIS W CON, 06/27/2017, 4:29. [facility], CR, XR ABD DECUBITUS LT, 06/28/2017, 11:46. [facility], CR, XR ABD DECUBITUS RT, 2016, 9:14. [facility], CR, XR ABD W ERECT + OR DECUB 2 VW, 06/28/2017, 7:22. FINDINGS: Surgical changes and devices: None. Bowel: No pneumoperitoneum. The bowel gas pattern is normal. Soft tissues: No masses; visualized solid organ contours appear normal in size. No suspicious abdom inal calcifications. Bones: No suspicious bony abnormalities. IMPRESSION: Bowel gas pattern remains normal, without pneumatosis. Dictated by: Paulie John M.D. on 06/28/2017 at 20:24 Approved by: Paulie John M.D. on 06/28/2017 at 20:27
[2017-06-29] VITALS (12 sets, daily range): BP systolic 152–188; BP diastolic 80–96; PULSE 61–70; RESP 14–18; O2SAT 93–97
[2017-06-29] MEDS: Piperacillin-Tazo 3.375 Gm Inj 3.375 GM in Dextrose 5% Minibag Plus 50 ML IV SCH ×4 (00:46→23:21)
--- NOTE | 2017-06-29 02:56 | NUR ---
Ptt Next Ptt was 98.6 at 2039 restarted heparin drip at 0. Pump set at 23units/kg/hr, next Ptt at 0400. Will monitor progress.
--- NOTE | 2017-06-29 03:24 | NUR ---
pain Pt alert and oriented x4, still some pain when pt moving from bed to commode. CRISIS INTERVENTION SPECIALIST set at 0.4 dose, 10min lock out and 2.4 mg/hr; pt comfortable with CRISIS INTERVENTION SPECIALIST, good pain control achieved.
[2017-06-29] MEDS: HYDROmorphone PCA 0.2 mg/mL 30 mL Inj IV PRN ×2 (06:04→13:46)
[2017-06-29 06:55] LABS: BASOPHILS % (AUTO) 1.1 % (0-3); EOSINOPHILS % (AUTO) 5.1 % (0-5); MONOCYTES % (AUTO) 7.1 % (4-12); Mean Corpuscular Hemoglobin 26.9 pg (27.0-35.0); Mean Corpuscular Volume 82.2 fL (81-100); NEUTROPHILS % (AUTO) 49.2 % (40-74); Platelet Count 230 bil/L (150-400)
[2017-06-29 07:22] LABS: INR 1.48 ratio
[2017-06-29] MEDS: 0.9% Sodium Chloride 1,000 ML IV SCH (08:09)
[2017-06-29] MEDS: Estrogens Conjugated 0.3 mg Tablet PO SCH (08:17)
[2017-06-29] MEDS ORDERED: MeTOProlol XL 25 mg ER24 Tablet PO SCH (08:30)
--- NOTE | 2017-06-29 10:10 | PCM.PNMED ---
Subjective Date of Service Jun 29, 2017 Subjective Patient seen and examined. She says she is doing better today. Passed gas. Vitals stable. Exam Vital Signs Vital Sign - Last Date Time Temp Pulse Resp B/P Pulse Ox O2 Delivery O2 Flow Rate FiO2 06/29/17 06:10 18 97 06/29/17 05:54 36.4 70 152/90 Room Air 06/27/17 09:47 2.00 Intake and Output 06/28/17 06/28/17 06/29/17 Cumulative From/Thru 15:00 23:00 07:00 06/27/17 02:44 - 06/29/17 06:32 Intake Total 581 ml 1492 ml 3516 ml Output Total 450 ml 600 ml 1350 ml Balance 131 ml 892 ml 2166 ml Intake Oral 0 ml 300 ml 622 ml IV Total 581 ml 1192 ml 2894 ml Output Urine Total 450 ml 600 ml 1350 ml # Bowel Movements 0 0 Exam Gen. patient is lying comfortably in hospital bed Lungs clear to auscultation bilaterally Heart regular rate and rhythm without murmurs gallops or rubs Abdomen soft, mildy tender (improved from yesterday) BS + Extremities pulses are present dorsalis pedis posterior tibialis and radial. tSkin is warm and dry there are no rashes Lab and Diagnostics Result Diagram: 06/29/1761406/29/17614 X-Rays, CTs and MRIs PROCEDURE: CT ABDOMEN AND PELVIS WITH CONTRAST ([id number]) INDICATIONS: severe abd pain IMPRESSION: 1. Focal ileitis with inflamed small bowel loops inferior to the umbilicus in midline, sparing the terminal ileum. Moderate ascites. No bowel obstruction or perforation. Normal appendix. 2. Cholelithiasis without evidence of cholecystitis. 3. Status post hysterectomy. Findings are concordant with the preliminary report. Dictated by: Bello Harrison M.D. 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 # Acute Ileitis ,poa -Infectious versus ischemic -She received Zosyn in ED, continue with that - No bowel movements yet, passed gas -NS at 100ml /h -trend lactate (normal so far) and on heparin drip - Surgery on board , serial abd series -Pain control with Dilaudid, Zofran when necessary for nausea -GI on board appreciate recs. # History of mesenteric venous thromboses with subtherapeutic INR - h/o clots as per patient, had work up done once at [facility], not sure what was the diagnosis, will get records -on heparin drip # History of hepatitis C, completed treatment and presumed cured #History of hypertension -Resume home meds #History of opioid dependence -Pain control as above #History of asthma, stable #History of narcolepsy -Continue adderral #Anxiety - takes oral anti anxiety - will give iv prn for now as patient is npo Patient admitted under inpatient status with expected length of stay > 2 midnights for severity of present symptoms, complexities of treatment plan and risk for adverse events full code Resuscitation Status: CPR: Attempt Resuscitation Time spent 35 mins Dave Kuhn MD Jun 29, 2017 10:10
--- NOTE | 2017-06-29 10:18 | PCM.PNSURG ---
Subjective Date of Service: Jun 29, 2017 Date of Service: Jun 29, 2017 Visit Information: Reason for Visit Enteritis Surgery/Surgery Date Post-Op Day # Date of Admission: Jun 27, 2017 at 11:07 Hospital Day # Subjective: Gastroenterology Progress Note Patient's pain continues to improve. Pain is located diffusely in the upper quadrants of her abdomen. Pain is rated as a 5 out of 10. She continues to require WOOD MILLING MACHINE OPERATOR. Heparin drip has continued. Patient has not had a bowel movement since admission but has had flatus. Patient denies any ongoing nausea or vomiting. Per surgery she has remained nothing by mouth except ice chips. Objective Vital Sign- Last 8 Hours Date Time Temp Pulse Resp B/P Pulse Ox O2 Delivery O2 Flow Rate FiO2 06/29/17 06:10 18 97 06/29/17 05:54 36.4 70 18 152/90 97 Room Air 06/29/17 05:18 Supplement Oxygen 06/29/17 04:51 64 Intake and Output- Last 8 Hour 06/29/17 Cumulative From/Thru 07:00 06/27/17 02:44 - 06/29/17 06:32 Intake Total 1492 ml 3516 ml Output Total 600 ml 1350 ml Balance 892 ml 2166 ml Intake Oral 300 ml 622 ml IV Total 1192 ml 2894 ml Output Urine Total 600 ml 1350 ml # Bowel Movements 0 0 General: Alert, Oriented X3, No Acute Distress Neck: Supple Lungs: Clear to Auscultation, Normal Air Movement Heart: Regular Rate/Rhythm, No Murmurs/Rubs/Gallops Abdomen: Benign, Soft, Appropriately tender (diffusely tender greatest in the right upper quadrant) Extremities: Distal Pulses Palpable, Warm Neuro: Cranial Nerves 2-12 nl, Grossly Neurologically Intact Catheters: None Result Diagram: 06/29/1715 06/29/17614 Assessment & Plan Impression Grace Pagan is a 51-year-old female with past medical history significant for superior mesenteric venous thrombosis, hepatitis C status post Harvoni treatment, subarachnoid hemorrhage, and chronic opioid use who presents with nausea, vomiting, and diarrhea. Patient's history and physical exam is concerning for ischemic pathology but with her recent ingestion of prawns just prior to symptom onset infectious causes cannot be excluded. Dr. Spear was contacted and we discussed the CT findings of focal ileitis with inflamed small bowel inferior to the umbilicus in midline. We also discussed her history of SMA venous thrombosis and to Dr. Spear's best assessment the celiac, SMA, and SMV have no obvious sign of occlusion. Patient also initially had a mild leukocytosis with elevated procalcitonin was started on Zosyn and has continued. Labs have normalized at this time and patient is improving on heparin drip and WOOD MILLING MACHINE OPERATOR. Patient has yet to produce a stool sample to send for PCR. Recommendations: - Patient's abdominal exam continues to improve. - Recommend trial of a clear liquid diet. - Repeat abdominal x-ray shows no free air or other concerning findings. - Patient remains on heparin drip. Records from prior hematologic workup at [facility] have been requested by the primary team. Awaiting arrival. - Awaiting stool sample from patient to send for PCR. - Repeat lactic acid if pain or abdominal exam worsens. - Pain management per primary team. - Surgery following and recommends serial of abdominal x-rays every 12 hours. Appreciate recommendations. Thank you for involving us in this patient's care. We will continue to follow. Problems: Resuscitation Status: CPR: Attempt Resuscitation Attending Statement: Patient seen and examined. Agree with assessment and plan as described by Dr Ball. Passing gas. Tolerating liquids. Agree with slow advancement of diet. Awaiting stool studies once able to pass stool. Suggest echo to exclude intra-cardiac thrombus source. JAMES BALL DO Jun 29, 2017 10:18 Ron Ley MD Jun 29, 2017 16:43
[2017-06-29] MEDS: Heparin 25K Unit/500mL 0.45 NS 25,000 UNIT in IV Premix 1 EACH IV SCH (11:04)
--- NOTE | 2017-06-29 11:56 | PCM.PNSURG ---
Subjective Date of Service: Jun 29, 2017 Visit Information: Reason for Visit Enteritis Surgery/Surgery Date Post-Op Day # Date of Admission: Jun 27, 2017 at 11:07 Hospital Day # Subjective: No acute overnight events Pain well controlled on CONVEYOR CONSOLE OPERATOR, though is still having some abdominal soreness No nausea Passing flatus, no stool yet Afebrile Has not yet ambulated in hallways during this admission Objective Vital Sign- Last 8 Hours Date Time Temp Pulse Resp B/P Pulse Ox O2 Delivery O2 Flow Rate FiO2 06/29/17 11:05 14 96 06/29/17 08:00 67 06/29/17 06:10 18 97 06/29/17 05:54 36.4 70 18 152/90 97 Room Air 06/29/17 05:18 Supplement Oxygen 06/29/17 04:51 64 Intake and Output- Last 8 Hour 06/29/17 Cumulative From/Thru 07:00 06/27/17 02:44 - 06/29/17 06:32 Intake Total 1492 ml 3516 ml Output Total 600 ml 1350 ml Balance 892 ml 2166 ml Intake Oral 300 ml 622 ml IV Total 1192 ml 2894 ml Output Urine Total 600 ml 1350 ml # Bowel Movements 0 0 General: Alert, Cooperative, No Acute Distress Neck: Supple Lungs: Normal Air Movement Abdomen: Other (Soft and nondistended. Mildly tender throughout. No peritoneal signs. 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 Her abdominal exam is reassuring, her pain has improved, and she is now passing flatus. Problems: Plan - Continue heparin gtt and broad spectrum antibiosis - Repeat 2 view abdominal film today to determine progression of small dilation and r/o free air - Ok to advance to CLD today - Needs to ambulate in hallways TID - No surgical intervention necessary at this time Resuscitation Status: CPR: Attempt Resuscitation Johny Cooper MD Jun 29, 2017 11:56
--- NOTE | 2017-06-29 16:22 | NUR ---
Clear Liquid Diet Pt. started clear liquid diet at lunch. Advised pt to consume slowly. Pt. tolerating well. Denies increased ABD pain/discomfort. Currently sitting up in bed. No s/s distress. Frequent rounding being performed.
--- NOTE | 2017-06-29 16:42 | DRSVH ---
PROCEDURE: X-RAY ABDOMEN WITH ERECT AND/OR DECUBITUS VIEWS ([id number]) INDICATIONS: Free air? and progression of small bowel dilation TECHNIQUE: 2 views of the abdomen were acquired. COMPARISON: [facility], CR, XR ABD DECUBITUS LT, 06/28/2017, 11:46. [facility], CR, XR ABD DECUBITUS RT, 06/28/2017, 9:14. [facility], CR, XR ABD W ERECT + OR DECUB 2 VW, 06/28/2017, 7:22. [facility], CR, XR ABD W ERECT + OR DECUB 2 VW, 06/28/2017, 20:08. FINDINGS: Surgical changes and devices: None. Bowel: Nonspecific bowel gas pattern is present. There is mild gaseous distention multiple small bow el loops throughout the abdomen in otherwise the bowel gas pattern is normal with short air-fluid lev els on the upright examination. No pneumatosis or pneumoperitoneum. Soft tissues: No masses; visualized solid organ contours appear normal in size. No suspicious abdom inal calcifications. Bones: No suspicious bony abnormalities. IMPRESSION: Nonspecific bowel gas pattern. If patient's symptoms persist, recommend repeat imaging or CT. Dictated by: Chucho Ponce RRA Interpreted: Luisito Garcia MD on 06/29/2017 at 14:59 Approved by: Luisito Garcia M.D. on 06/29/2017 at 16:40
--- NOTE | 2017-06-29 18:21 | NUR ---
AM Pain Control Pt. c/o increased ABD pain in AM. Requested Dilaudid 1mg loading bolus per Dilaudid SURVEY TECHNOLOGIST protocol. Provided adequate pain relief. Pt. did not require bolus throughout remainder of shift.
[2017-06-29] MEDS: MeTOProlol XL 25 mg ER24 Tablet PO SCH (20:54)
--- NOTE | 2017-06-30 02:56 | NUR ---
Ptt Pt alert and oriented x 3, less noted anxiety this shift compared to night before. Pt asked for 2mg clonazapam at HS, pt resting well. Pt had 2 heparin Ptt's that are in therapeutic range, drip set at 19 units/kg/hr. No noted bleeding issues, will continue to monitor.
[2017-06-30] MEDS: 0.9% Sodium Chloride 1,000 ML IV SCH ×3 (04:30→21:25)
[2017-06-30 05:49] VITALS: PULSE 63
[2017-06-30 05:59] VITALS: BP 167/82; PULSE 58; RESP 18; O2SAT 93
[2017-06-30] MEDS: HYDROmorphone PCA 0.2 mg/mL 30 mL Inj IV PRN ×3 (06:24→21:58)
--- NOTE | 2017-06-30 07:13 | NUR ---
Ptt Ptt taken at 0630 reported back at 75.5, no change of heparin drip settings. Passed on information to day shift nurse.
[2017-06-30 07:39] LABS: Mean Corpuscular Hemoglobin 26.4 pg (27.0-35.0)
[2017-06-30 07:40] LABS: BASOPHILS % (AUTO) 1.6 % (0-3); EOSINOPHILS % (AUTO) 6.5 % (0-5); NEUTROPHILS % (AUTO) 48.8 % (40-74); Platelet Count 295 bil/L (150-400)
[2017-06-30 08:46] VITALS: BP 170/83; PULSE 55; RESP 18; O2SAT 95
[2017-06-30] MEDS: Polyethylene Glycol (PEG) 17 Gm Powder PO SCH (09:00)
[2017-06-30] MEDS: Estrogens Conjugated 0.3 mg Tablet PO SCH (09:00)
[2017-06-30] MEDS: Piperacillin-Tazo 3.375 Gm Inj 3.375 GM in Dextrose 5% Minibag Plus 50 ML IV SCH (09:00)
--- NOTE | 2017-06-30 09:51 | PROG NOTE ---
[address] [address] PROGRESS NOTE PATIENT: MARIO STARR : 1965 MR#: [id number] ADMIT: 06/27/2017 JOB ID: [id number] DATE: 06/30/2017 SUBJECTIVE: The patient is seen in followup. She continues to feel better each day, although can still "feels something there" in her abdomen. She has not had any flatus or bowel movement. She has no nausea. She is tolerating clear liquids. OBJECTIVE: Temperature 36.6, pulse 55, blood pressure 170/83, saturation 95% on room air. General: She is resting in bed, in no acute distress. Chest is clear. Heart: Regular rate and rhythm. No murmurs. Abdomen is soft, nondistended, minimally tender to palpation. Bowel tones are present. LABORATORIES: White count is 5.7, hematocrit 39.6, platelets 295. Creatinine 0.98, glucose 95. ASSESSMENT AND PLAN: A 51-year-old woman with superior mesenteric vein thrombosis, being treated with anticoagulation. She had thickening of the distal ileum on initial CT and has not had significant return of bowel function yet but is improving clinically. Recommend continuing the course with anticoagulation. Her diet can be advanced to full liquids.
[2017-06-30] MEDS: MeTOProlol XL 25 mg ER24 Tablet PO SCH ×2 (10:01→20:03)
--- NOTE | 2017-06-30 10:01 | NUR ---
BP BP 170/83 and pulse 55. per patient statement ," i always took metorprolol with out checking pulse and my blood pressure is high." Notified Dr. Cartagena and orders to give metorprolol as ordered.
[2017-06-30 11:27] VITALS: PULSE 61
--- NOTE | 2017-06-30 11:38 | NUR ---
Guiac stool very small diarrhea like BM, stool sample sent for guaiac as ordered.
[2017-06-30 12:37] VITALS: BP 154/88; PULSE 62; RESP 18; O2SAT 62; O2SAT 92
--- NOTE | 2017-06-30 12:56 | PROG NOTE ---
[address] [address] PROGRESS NOTE PATIENT: MARIO STARR : 1965 MR#: [id number] ADMIT: 06/27/2017 JOB ID: [id number] DATE: 06/30/2017 SUBJECTIVE: Overall the patient feels improved. She had a bowel movement that clearly has an element of blood mixed in with the stool to my eye. It is being submitted for stool PCR. She has tolerated the clear liquid diet and Dr. Hernandez would like to see how she continues to do with full liquid today and I would agree. She is on anticoagulation. H and H are stable. OBJECTIVE: Blood pressure 170/83, pulse 55, breathing 18, afebrile 36.6, 95% on room air. Conversational, in no distress although she did have her HARDWOOD FLOOR INSTALLER pump in hand. She has a soft abdomen. No guarding at present. Overall considerably better from the moment of admission. LABORATORY: Basic metabolic panel this morning was normal. CBC is stable and normal. ASSESSMENT AND RECOMMENDATIONS: A 51-year-old female with a history of the superior mesenteric venous thrombosis on chronic longstanding anticoagulation, who presented with in essence acute abdominal symptoms concerning for ischemia. She has multifocal areas of thickening in the mid and distal bowel. No prior suggestion or history of any kind of inflammatory bowel disease such as Crohn's. I doubt this is an infectious etiology but a stool PCR has finally appropriately been submitted today. She remains on anticoagulation and for the moment does not appear as though she is going to need a surgical intervention. I agree with the full liquid diet and would be comfortable advancing this tomorrow if she continues to really do well through today. I note that she is on the heparin drip and if she does not appear to be drifting towards a surgery then perhaps she should be restarted on her Coumadin. I again would recommend at some point the patient experience a transthoracic echocardiogram prior to discharge. Will continue to follow with you. COMMENT: This is a no-charge position visit. Today is the Sabbath. Please do not submit a physician charge for this particular note.
--- NOTE | 2017-06-30 12:59 | NUR ---
PTT/C-diff Per protocol next PTT heparin tomorrow AM. Eamon jarvis hospitalist r/t stool positive C-diff. Initiated C-diff precautions. patient aware.
--- NOTE | 2017-06-30 13:41 | PCM.PNMED ---
Subjective Date of Service Jun 30, 2017 Subjective Was doing better, less pain but this AM started with diarrhea and some increase in the pin, N?V has not returned. Stool positive for c-diff, has not had this before. Exam Vital Signs Vital Sign - Last Date Time Temp Pulse Resp B/P Pulse Ox O2 Delivery O2 Flow Rate FiO2 06/30/17 12:37 36.7 62 18 154/88 62 Room Air 06/27/17 09:47 2.00 Intake and Output 06/29/17 06/29/17 06/30/17 Cumulative From/Thru 15:00 23:00 07:00 06/27/17 02:44 - 06/30/17 05:30 Intake Total 1354 ml 1240 ml 6110 ml Output Total 800 ml 2150 ml Balance 554 ml 1240 ml 3960 ml Intake Oral 720 ml 1342 ml IV Total 634 ml 1240 ml 4768 ml Output Urine Total 800 ml 2150 ml # Bowel Movements 0 0 Exam Skin; warm and dry, no rash Eyes; miguel a, eom intact HENT; well hydrated no lesions CV; reg no murmur Resp; clear anteriorly GI; soft throughout with diffuse mild tenderness Neuro; cn 2-12 intact, no focal deficits Lab and Diagnostics Result Diagram: 06/30/17 0632 06/30/17 0632 X-Rays, CTs and MRIs PROCEDURE: CT ABDOMEN AND PELVIS WITH CONTRAST ([id number]) INDICATIONS: severe abd pain IMPRESSION: 1. Focal ileitis with inflamed small bowel loops inferior to the umbilicus in midline, sparing the terminal ileum. Moderate ascites. No bowel obstruction or perforation. Normal appendix. 2. Cholelithiasis without evidence of cholecystitis. 3. Status post hysterectomy. Findings are concordant with the preliminary report. Dictated by: Bello Harrison M.D. 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 # Acute Ileitis ,poa, improving -Recieved 4 days of IV antibiotics, now c diff positive -will stop Zosyn today, continue with full liquid diet (discussed with Dr. Hernandez by phone) -repeat procalcitonin and cbc with diff in AM -KUB now normal # History of mesenteric venous thromboses with subtherapeutic INR' poa, improving -possible ischemia causing pain and symptoms however lactate normal -continue with IV heparin drip, consider starting oral anticoagulation as patient improves #Acute c. diff, active, acuity unknown -unknown if patient has c. diff on admission or developed it after starting IV Zosyn 4 days ago -stop Zosyn, start PO Vancomycin (-[phone] -isolation # History of hepatitis C, poa, stable -completed treatment and presumed cured #History of hypertension, poa, stable -Resume home meds #History of opioid dependence, poa, stable -Pain control as above #History of asthma, poa, stable #History of narcolepsy, poa, stable -Continue adderral #Anxiety, poa, stable - takes oral anti anxiety - will give iv prn for now as patient is npo Patient admitted under inpatient status with expected length of stay > 2 midnights for severity of present symptoms, complexities of treatment plan and risk for adverse events full code Dispo; -pcp is Dr Natalee Looney MD, [facility] VTE Mechanical Devices: Intermittant Pneumatic CD Resuscitation Status: CPR: Attempt Resuscitation Damion Delcid MD Jun 30, 2017 13:41
[2017-06-30] MEDS: Vancomycin 100 mg/mL Oral Solution PO SCH ×2 (14:47→20:02)
--- NOTE | 2017-06-30 16:15 | NUR ---
pain patient requesting to clarify diagnosis and pain getting worse in abdomen. Eamon paged GI Dr. Ley and notified Dr. Cartagena. Dr. Cartagena at bed side and speaking to patient/answering questions patient has r/t abdomen pain and diagnosis.
[2017-06-30 18:11] VITALS: BP 169/81; PULSE 53; RESP 16; RESP 18; O2SAT 93; O2SAT 97
[2017-06-30] MEDS: HYDROmorphone 1 mg/mL Inj IVPUSH PRN (20:02)
[2017-07-01] VITALS (15 sets, daily range): BP systolic 117–188; BP diastolic 71–94; PULSE 58–68; RESP 14–18; O2SAT 93–99
[2017-07-01] MEDS: 0.9% Sodium Chloride 1,000 ML IV SCH ×3 (01:37→21:30)
[2017-07-01] MEDS: Vancomycin 100 mg/mL Oral Solution PO SCH ×4 (03:24→21:24)
[2017-07-01 06:33] LABS: BASOPHILS % (AUTO) 0.8 % (0-3); EOSINOPHILS % (AUTO) 5.5 % (0-5); MONOCYTES % (AUTO) 7.8 % (4-12); Mean Corpuscular Hemoglobin 26.6 pg (27.0-35.0); Mean Corpuscular Volume 82.4 fL (81-100); NEUTROPHILS % (AUTO) 44.9 % (40-74); Platelet Count 307 bil/L (150-400)
--- NOTE | 2017-07-01 06:42 | NUR ---
Pain Reporting pain unalterable on initial assessment. 1mg Dilaudid IVP administered and patient educated on ACCOUNTING SPECIALIST and encouraged to use every ten minutes until pain tolerable. On return assessment patient resting comfortably and has denied any significant pain the remainder of shift.
[2017-07-01] MEDS: Polyethylene Glycol (PEG) 17 Gm Powder PO SCH (07:31)
[2017-07-01] MEDS: Estrogens Conjugated 0.3 mg Tablet PO SCH (07:32)
[2017-07-01] MEDS: MeTOProlol XL 25 mg ER24 Tablet PO SCH ×2 (07:33→21:24)
--- NOTE | 2017-07-01 10:45 | PROG NOTE ---
[address] [address] PROGRESS NOTE PATIENT: MARIO STARR : 1965 MR#: [id number] ADMIT: 06/27/2017 JOB ID: [id number] DATE: 07/01/2017 SUBJECTIVE: The patient is seen in followup. She feels about the same today as yesterday. Her pain today is in the left upper quadrant. Yesterday, she had a bowel movement and upon testing that, she tested positive for C. difficile toxin. Her routine antibiotics have been stopped, and she has been switched to oral vancomycin. She has no nausea. OBJECTIVE: Temperature 36.4, pulse 60, blood pressure 132/71, saturation 99% on room air. In general, she is resting in bed in no acute distress. Chest is clear. Heart regular rate and rhythm, no murmurs. Abdomen is soft, nontender, nondistended. Bowel tones are present. She has no guarding or rebound tenderness. LABORATORIES: White count is 6.3, hematocrit 35.7, and platelets 307. Creatinine 0.98. Procalcitonin 0.25, down from 1.32. 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 Antibiotics have been appropriately switched. I think her diet can be advanced. General Surgery will continue to follow peripherally.
--- NOTE | 2017-07-01 11:47 | NUR ---
Mentation patient is alert and oriented X3. Able to make needs known. No sign and symptoms of pain noted. ON PREPARER MAKING DEPARTMENT via pump as ordered for pain management. patient is eating lunch at bed side and states," it looks good." educational sign language interpreter at bed side. Patient received all PO medications as ordered with out difficulty swallowing. No adverse effects noted of Oral Vancomycin. No reports of diarrhea, nausea, or vomiting by patient. Stable mood. Uses call light appropriately and with in reach for safety. Continue C-diff precautions. Dr. Ley spoke to patient this shift. PTT Heparin this AM 94.1 and adjusted per protocol to Decrease by one unit. Next PTT heparin at 1300 per protocol. no sign and symptoms of any bleeding or bruising noted. Continue to monitor.
--- NOTE | 2017-07-01 12:20 | PROG NOTE ---
[address] [address] PROGRESS NOTE PATIENT: MARIO STARR : 1965 MR#: [id number] ADMIT: 06/27/2017 JOB ID: [id number] DATE: 07/01/2017 SUBJECTIVE: The patient has had a couple of bowel movements now. Interestingly stool did not reveal any enteric pathogens apart from the presence of C. diff. I explained that her presentation was quite atypical for C. diff and that I am not sure she actually has a classic infection. This could quite conceivably be related to colonization. At any rate she has been quite reasonably started on vancomycin. The patient states that she is having pain on the left side of her abdomen. She indicates that this is worse today than it was yesterday. Her pain protocol via COIN MACHINE SUPERVISOR has been adjusted by the primary team. OBJECTIVE: The patient had some tears this morning in relating her abdominal pain. Blood pressure was 159/83, pulse 66, breathing 16, temperature 36.4, 97% on room air. Otherwise she was in no distress and I did not appreciate any guarding on abdominal exam. She did claim to be tender in the left upper quadrant area. LABORATORY: White count 6.3, hemoglobin 11.5, platelets 307. Lactate was again normal at 1.6. Her procalcitonin level is down to 0.25. Glucose was 125, otherwise metabolic panel was unremarkable. ASSESSMENT AND RECOMMENDATIONS: This is a 51-year-old female with a history of superior mesenteric venous thrombosis who came in with subacute onset of abdominal pain. She has multifocal small bowel thickening concerning for an ischemia-induced injury. She has responded to resumption of anticoagulation and broad-spectrum antibiotic. I am skeptical that C. diff is the pathogenic culprit here but I agree with a seven day course of vancomycin. She does not exhibit any peritoneal signs at the moment and her lactate remains normal. H and H are acceptably stable. That said, if her pain continues to worsen, then repeat CT scan will be necessary. For now the patient should be able to pursue diet selections at her discretion. In that it does not appear as though she is headed towards the operating room, I think that it would be quite reasonable to get her Coumadin restarted and her INR up to therapeutic status. I again would recommend that she be considered for echocardiography prior to discharge.
[2017-07-01] MEDS: HYDROmorphone PCA 0.2 mg/mL 30 mL Inj IV PRN (12:25)
--- NOTE | 2017-07-01 12:57 | PCM.PNMED ---
Subjective Date of Service Jul 01, 2017 Subjective Resting comfortable in bed, asking to change to a regular diet. Case discussed with GI, Dr. Mcwilliams, in person. Patient still with some abdominal pain, but less frequent and less severe. No diarrhea. Exam Vital Signs Vital Sign - Last Date Time Temp Pulse Resp B/P Pulse Ox O2 Delivery O2 Flow Rate FiO2 07/01/17 12:27 15 98 07/01/17 10:50 60 07/01/17 09:42 36.4 159/83 Room Air 06/27/17 09:47 2.00 Intake and Output 06/30/17 06/30/17 07/01/17 Cumulative From/Thru 15:00 23:00 07:00 06/27/17 02:44 - 07/01/17 06:25 Intake Total 580 ml 1717 ml 919 ml 9326 ml Output Total 2550 ml 900 ml 5600 ml Balance -1970 ml 817 ml 919 ml 3726 ml Intake Oral 580 ml 840 ml 2762 ml IV Total 877 ml 919 ml 6564 ml Output Urine Total 2550 ml 900 ml 5600 ml # Bowel Movements 2 2 Exam Skin; warm and dry, no rash noted Eyes; miguel a, eom intact HENT; well hydrated no lesions CV; reg no murmur Resp; clear anteriorly GI; soft throughout with diffuse mild tenderness, non acute Neuro; cn 2-12 intact, no focal deficits Lab and Diagnostics Result Diagram: 07/01/17 0612 07/01/17 0612 X-Rays, CTs and MRIs PROCEDURE: CT ABDOMEN AND PELVIS WITH CONTRAST (PNL-7102) INDICATIONS: severe abd pain IMPRESSION: 1. Focal ileitis with inflamed small bowel loops inferior to the umbilicus in midline, sparing the terminal ileum. Moderate ascites. No bowel obstruction or perforation. Normal appendix. 2. Cholelithiasis without evidence of cholecystitis. 3. Status post hysterectomy. Findings are concordant with the preliminary report. Dictated by: Bello Harrison M.D. 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 # Acute Ileitis ,poa, resolved -Recieved 4 days of IV antibiotics, now c diff positive -will stop Zosyn today, continue with full liquid diet (discussed with Dr. Hernandez by phone) -repeated procalcitonin and cbc with diff essentially normal -KUB now normal # History of mesenteric venous thromboses with subtherapeutic INR' poa, improving -possible ischemia causing pain and symptoms however lactate normal -continue with IV heparin drip, -resume coumadin today, continue IV heparin until therapeutic -advance to reg diet today #Acute c. diff, active, acuity unknown -unknown if patient has c. diff on admission or developed it after starting IV Zosyn 4 days ago -stop Zosyn, start PO Vancomycin (start06-30-17 thru 07-06-17) -isolation # History of hepatitis C, poa, stable -completed treatment and presumed cured #History of hypertension, poa, stable -Resume home meds #History of opioid dependence, poa, stable -Pain control as above #History of asthma, poa, stable #History of narcolepsy, poa, stable -Continue adderral #Anxiety, poa, stable - takes oral anti anxiety - will give iv prn for now as patient is npo Patient admitted under inpatient status with expected length of stay > 2 midnights for severity of present symptoms, complexities of treatment plan and risk for adverse events full code Dispo; -pcp is Dr Natalee Looney MD, [facility] VTE Mechanical Devices: Intermittant Pneumatic CD Resuscitation Status: CPR: Attempt Resuscitation Damion Delcid MD Jul 01, 2017 12:56
[2017-07-01 13:57] LABS: INR 1.29 ratio
--- NOTE | 2017-07-01 14:25 | NUR ---
APTT Heparin Lab called for aPTT heparin result 78.4, per Heparin protocol no change, new aPTT draw at 1930. patient aware.
--- NOTE | 2017-07-01 14:44 | NUR ---
Anxiety patient feeling anxious about family and 2 service dogs with the neighbors. patient requesting anxiety medication. PRN anti anxiety given as ordered.
--- NOTE | 2017-07-01 17:29 | NUR ---
MONCHO signed. Sayra Berg ETHICAL HACKER
--- NOTE | 2017-07-01 17:39 | NUR ---
Social Work- Continued D/C Planning Data: EMR reviewed. Pt is on day 4 of hospitalization. Pt discussed in rounds, pt is not medically ready for d/c. Anticipate 2-3 more days. Pt is CDIFF +. Pt is anticipated to discharge home via POV. SW will continue to follow. Assessment: Pt who is independent at baseline. Plan: Pt is anticipated to discharge home via POV. SW will continue to follow. VALENTINO Antonio
--- NOTE | 2017-07-01 17:41 | NUR ---
Telemetry per neurology tech Sinus 68, 60-70's, no ectopy.
--- NOTE | 2017-07-01 18:02 | NUR ---
Elevated Systolic BP after activity/bed side commode 188/94, pulse 62. Resting BP 160/82, pulse 66. patient asymptomatic. Denies any headaches or dizziness. Eamon jarvis hospitalist. hospitalist called back and per hospitalist continue to monitor BP. patient having meal at this time. Small dark semi soft stool this shift and sample sent to lab per orders for guiac all stools.
--- NOTE | 2017-07-01 18:37 | PCM.PHAPRO ---
Progress Date of Service: Jul 01, 2017 Abdominal pain, nausea, vomiting, diarrhea Dx: VTE INR goal 2-3 INR 1.29 (below goal) give warfarin 3mg tonight draw INR AM labs on 07/02 per pharmacy Shubham ShahD Shubham John Jul 01, 2017 18:37
[2017-07-01] MEDS: Heparin 25K Unit/500mL 0.45 NS 25,000 UNIT in IV Premix 1 EACH IV SCH (21:31)
[2017-07-02] VITALS (12 sets, daily range): BP systolic 149–177; BP diastolic 78–93; PULSE 53–63; RESP 16–18; O2SAT 95–98
[2017-07-02] MEDS: HYDROmorphone PCA 0.2 mg/mL 30 mL Inj IV PRN ×3 (01:53→22:45)
[2017-07-02] MEDS: Vancomycin 100 mg/mL Oral Solution PO SCH ×4 (02:29→20:34)
--- NOTE | 2017-07-02 05:42 | NUR ---
PTT Stable Pt. PTT is stable enough to go to 24hr draw. Also switched to Warfarin. Pain manageable w/ PAC. Possible D/C today to [facility]. VSS and she is in good spirits. Addendum: 07/02/17 at 0551 by ODELL WOLFE RN No D/C to [facility]
[2017-07-02 06:28] LABS: INR 1.13 ratio
--- NOTE | 2017-07-02 07:35 | PCM.PNSURG ---
Subjective Date of Service: Jul 02, 2017 Visit Information: Reason for Visit Enteritis Surgery/Surgery Date Post-Op Day # Date of Admission: Jun 27, 2017 at 11:07 Hospital Day # Subjective: No acute overnight events She reports her abdominal pain is very mild at this point No nausea, tolerating PO intake Passing flatus and 3 loose BMs in last 24 hours Objective Vital Sign- Last 8 Hours Date Time Temp Pulse Resp B/P Pulse Ox O2 Delivery O2 Flow Rate FiO2 07/02/17 05:30 18 95 07/02/17 05:04 36.5 61 18 177/93 95 Room Air 07/02/17 03:55 Supplement Oxygen 07/02/17 02:53 57 07/02/17 01:26 18 95 07/02/17 00:18 36.6 53 18 169/90 95 Room Air Intake and Output- Last 8 Hour 07/02/17 Cumulative From/Thru 07:00 06/27/17 02:44 - 07/02/17 05:14 Intake Total 1418 ml 75330 ml Output Total 6900 ml Balance 1418 ml 6852 ml Intake Oral 4588 ml IV Total 1418 ml 9164 ml Output Urine Total 6900 ml # Bowel Movements 3 General: Alert, Oriented X3, Cooperative, No Acute Distress Neck: Supple Lungs: Normal Air Movement Abdomen: Soft, Non-tender, Non-distended Extremities: Warm Neuro: Grossly Neurologically Intact Result Diagram: 07/02/17 0600 07/01/17 0612 Assessment & Plan Impression 51F with history of 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 She is c.diff positive, though was not having diarrhea pre-admission. She is very unlikely to require surgery at this time. Problems: Plan No indication for surgical intervention Continue heparin gtt until therapeutic on warfarin Abx per medicine and ID Advance diet as tolerated Surgery will follow peripherally Please do not hesitate to call with questions or concerns Resuscitation Status: CPR: Attempt Resuscitation Johny Cooper MD Jul 02, 2017 07:35
[2017-07-02] MEDS: 0.9% Sodium Chloride 1,000 ML IV SCH (07:37)
[2017-07-02] MEDS: Polyethylene Glycol (PEG) 17 Gm Powder PO SCH ×2 (08:30→09:20)
[2017-07-02] MEDS: MeTOProlol XL 25 mg ER24 Tablet PO SCH ×2 (09:19→20:34)
[2017-07-02] MEDS: Estrogens Conjugated 0.3 mg Tablet PO SCH (09:20)
--- NOTE | 2017-07-02 12:01 | PCM.PHAPRO ---
Progress Date of Service: Jul 02, 2017 Warfarin dosing Date -Jul 02-Jun INR 1.29 1.13 INR change -0.16 Warf Dose 3MG 3mg Suni Hinson PharmD Jul 02, 2017 12:01
--- NOTE | 2017-07-02 13:54 | PROG NOTE ---
[address] [address] PROGRESS NOTE PATIENT: MARIO STARR : 1965 MR#: [id number] ADMIT: 06/27/2017 JOB ID: [id number] DATE: 07/02/2017 SUBJECTIVE: The patient has done well with advancement to a general diet. She is still having some mild epigastric discomfort. She is utilizing her p.r.n. Dilaudid. She remains on heparin. Coumadin has been started. She remains on treatment for . At the patient's request, I gave her mom, Sophia, a phone call and a brief update on her status. OBJECTIVE: Blood pressure is up a little bit still. Pulse in the 50s. Afebrile, 95% on room air. Conversational, in no distress. Abdomen is soft. I did not appreciate any significant tenderness on my exam this morning. LABS: H and H stable. INR is up at 1.13. ASSESSMENT AND RECOMMENDATIONS: A 51-year-old female with a history of superior mesenteric vein thrombosis. She had multifocal distal bowel wall thickening of uncertain etiology. She was found to have Clostridium difficile in the stool PCR. I am not convinced this is the pathogenic culprit here. I agree with treating. Clearly the patient was improving even prior to initiation of the vancomycin. I would still recommend the patient have an echocardiogram before she leaves to ensure that there has not been some form of intracardiac thrombus (i.e., did the patient have an element of terminal branches of the superior mesenteric artery hit with clot debris). I would recommend tapering of her pain regimen and an attempt at conversion over to oral opiates as needed.
--- NOTE | 2017-07-02 14:49 | PCM.PNMED ---
Subjective Date of Service Jul 02, 2017 Subjective Still with diarhea, intermittent abdo pin but improving slowly. We talked about the need to stop estrogen in the setting of thrombotic issues, she agrees but concerned about recurrent hot flashes. Exam Vital Signs Vital Sign - Last Date Time Temp Pulse Resp B/P Pulse Ox O2 Delivery O2 Flow Rate FiO2 07/02/17 13:44 36.7 59 18 149/80 96 Room Air 06/27/17 09:47 2.00 Intake and Output 07/01/17 07/01/17 07/02/17 Cumulative From/Thru 15:00 23:00 07:00 06/27/17 02:44 - 07/02/17 05:14 Intake Total 590 ml 2418 ml 1418 ml 44806 ml Output Total 200 ml 1100 ml 6900 ml Balance 390 ml 1318 ml 1418 ml 6852 ml Intake Oral 590 ml 1236 ml 4588 ml IV Total 1182 ml 1418 ml 9164 ml Output Urine Total 200 ml 1100 ml 6900 ml # Bowel Movements 0 1 3 Exam Skin; warm and dry, no rash noted Eyes; miguel a, eom intact HENT; well hydrated no lesions CV; reg no murmur, no edema, no JVD Resp; clear anteriorly GI; soft throughout with diffuse mild tenderness, non acute Neuro; cn 2-12 intact, no focal deficits Lab and Diagnostics Result Diagram: 07/02/17 0600 07/01/17 0612 X-Rays, CTs and MRIs PROCEDURE: CT ABDOMEN AND PELVIS WITH CONTRAST ([id number]) INDICATIONS: severe abd pain IMPRESSION: 1. Focal ileitis with inflamed small bowel loops inferior to the umbilicus in midline, sparing the terminal ileum. Moderate ascites. No bowel obstruction or perforation. Normal appendix. 2. Cholelithiasis without evidence of cholecystitis. 3. Status post hysterectomy. Findings are concordant with the preliminary report. Dictated by: Bello Harrison M.D. 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 # Acute Ileitis ,poa, resolved -Recieved 4 days of IV antibiotics, now c diff positive -will stop Zosyn today, continue with full liquid diet (discussed with Dr. Hernandez by phone) -repeated procalcitonin and cbc with diff essentially normal -KUB now normal # History of mesenteric venous thromboses with subtherapeutic INR' poa, improving -possible ischemia causing pain and symptoms however lactate normal -resume coumadin today, continue IV heparin until therapeutic -advance to reg diet today -will discontinue the estrogen, patient already on an SSRI which can help with hot flashes, could consider adding neurontin. #Acute c. diff, active, acuity unknown -unknown if patient has c. diff on admission or developed it after starting IV Zosyn 4 days ago -stop Zosyn, start PO Vancomycin (start06-30-17 thru 07-06-17) -isolation # History of hepatitis C, poa, stable -completed treatment and presumed cured #History of hypertension, poa, stable -Resume home meds #History of opioid dependence, poa, stable -Pain control as above #History of asthma, poa, stable #History of narcolepsy, poa, stable -Continue adderral #Anxiety, poa, stable - takes oral anti anxiety - will give iv prn for now as patient is npo Patient admitted under inpatient status with expected length of stay > 2 midnights for severity of present symptoms, complexities of treatment plan and risk for adverse events full code Dispo; -pcp is Dr Natalee Looney MD, [facility] VTE Mechanical Devices: Intermittant Pneumatic CD Resuscitation Status: CPR: Attempt Resuscitation Damion Delcid MD Jul 02, 2017 14:49
[2017-07-02] MEDS: Heparin 25K Unit/500mL 0.45 NS 25,000 UNIT in IV Premix 1 EACH IV SCH (18:06)
--- NOTE | 2017-07-02 18:48 | NUR ---
Pain/Stool Pt c/t use painter drum regularly, which is managing pain well and pt has been able to rest throughout the day. Pt is also having bloody stool, c/t guaic all.
[2017-07-03] VITALS (12 sets, daily range): BP systolic 120–186; BP diastolic 68–91; PULSE 56–90; RESP 14–18; O2SAT 91–97
[2017-07-03] MEDS: 0.9% Sodium Chloride 1,000 ML IV SCH ×2 (03:37→03:39)
[2017-07-03] MEDS: Vancomycin 100 mg/mL Oral Solution PO SCH ×4 (03:38→19:45)
--- NOTE | 2017-07-03 05:32 | NUR ---
NOC shift note Assumed care at 2300. Patient was teary at beginning of shift, stated that she is worried about stopping estrogen medication, but reported that she understands that it can cause blood clots. Requested PRN Xanax, administered. Patient calm, cooperative, conversational for rest of the night when awake. Reported that she slept well between midnight and about 0400. MANAGER CH[place] is effective for abdominal pain, reports steady 4/10 pain. Alert and oriented, independent to BSC. Heparin infusion continues, PTT ordered for this morning, result pending. Call light within reach, intentional rounding, enteric precautions in place.
[2017-07-03] MEDS: HYDROmorphone PCA 0.2 mg/mL 30 mL Inj IV PRN (06:30)
[2017-07-03 07:00] LABS: BASOPHILS % (AUTO) 0.7 % (0-3); MONOCYTES % (AUTO) 8.7 % (4-12); Mean Corpuscular Hemoglobin 26.8 pg (27.0-35.0); NEUTROPHILS % (AUTO) 49.2 % (40-74); Platelet Count 342 bil/L (150-400)
[2017-07-03 07:36] LABS: INR 1.05 ratio
[2017-07-03] MEDS: Polyethylene Glycol (PEG) 17 Gm Powder PO SCH (08:30)
[2017-07-03] MEDS: MeTOProlol XL 25 mg ER24 Tablet PO SCH ×2 (08:55→19:44)
--- NOTE | 2017-07-03 11:07 | PCM.PNMED ---
Subjective Date of Service Jul 03, 2017 Subjective Patient is in bed, feels better, weak, complaining of intermittent hot flashes, would like to hold estrogens for now. Exam Vital Signs Vital Sign - Last Date Time Temp Pulse Resp B/P Pulse Ox O2 Delivery O2 Flow Rate FiO2 07/03/17 10:16 56 07/03/17 09:10 36.5 18 120/68 91 07/03/17 08:59 Supplement Oxygen 06/27/17 09:47 2.00 Intake and Output 07/02/17 07/02/17 07/03/17 Cumulative From/Thru 15:00 23:00 07:00 06/27/17 02:44 - 07/03/17 06:36 Intake Total 420 ml 600 ml 1447 ml 76011 ml Output Total 1300 ml 2000 ml 1900 ml 11512 ml Balance -880 ml -1400 ml -453 ml 4119 ml Intake Oral 420 ml 600 ml 400 ml 6008 ml IV Total 1047 ml 03062 ml Output Urine Total 1300 ml 2000 ml 1900 ml 67149 ml # Bowel Movements 1 1 0 5 Exam PHYSICAL EXAM: GENERAL: Alert, not in distress, cooperative HEAD: atraumatic, normocephalic EYES: GEORGIE, EOMI, anicteric, able to fully open and close eyelids SKIN: Skin color normal, turgor normal. No visible rashes or lesions. EAR, NOSE, MOUTH, THROAT: Lips, oral mucosa, tongue gums, oropharynx are moist , pink, no lesions. Ears normal appearance, no lesions. NECK: no jugulovenous distention, no carotid bruits, carotid pulse normal contour, No carotid bruit, no enlarged lymph nodes appreciated; supple ROM normal. RESPIRATORY: Lungs clear to auscultation. Good diaphragmatic excursion. Normal percussion sound. CARDIAC: normal S1 and S2; no rubs, murmurs, or gallops; regular rate and rhythm ABDOMEN: Abdomen soft, mildly tender. BS normal. No masses or organomegaly. MUSCULOSKELETAL: ROM full, muscles are not tender EXTREMITIES: no pitting edema in LE, no new deformities or skin discoloration. NEURO: Alert, oriented X 3, Sensation grossly intact., Cranial nerves II-XII intact, Grossly normal motor function. PULSES: 2+ radial, 2+ carotid REVIEW OF SYSTEMS: GENERAL: no malaise, no fevers., SEE HPI HEENT: Negative for frequent or significant headaches All other reviewed and negative other than HPI. IVs and Medications Medications Reviewed: Medications were reviewed in detail Lab and Diagnostics Result Diagram: 07/03/1761907/03/17619 X-Rays, CTs and MRIs PROCEDURE: CT ABDOMEN AND PELVIS WITH CONTRAST (PNL-7102) INDICATIONS: severe abd pain IMPRESSION: 1. Focal ileitis with inflamed small bowel loops inferior to the umbilicus in midline, sparing the terminal ileum. Moderate ascites. No bowel obstruction or perforation. Normal appendix. 2. Cholelithiasis without evidence of cholecystitis. 3. Status post hysterectomy. Findings are concordant with the preliminary report. Dictated by: Bello Harrison M.D. 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 Acute Ileitis, C. difficile colitis. - improving , not under control Plan - Start IV Flagyl to treat ileitis - Continue with by mouth ankle for now - Monitor History of mesenteric venous thromboses -Stable - I Discussed with the patient risks of anticoagulation - severe bleeding, intracranial bleed, other severe bleeds. Patient was aware of it. Plan - Continue heparin drip/warfarin by mouth - Check INR daily, adjust warfarin as needed Hypertension - Stable - Continue with current meds History of opioid dependence, -stable - Patient would like to continue with opioids for pain Asthma - Stable - Continue with current meds Narcolepsy - stable -Continue adderral Anxiety - Stable - Continue with current meds DVT PROPHYLAXIS: Heparin/warfarin Code status: Patient would like to be full code Disposition: discharge in 2-3 days after patient improves. Plan of care discussed with the patient; Labs, radiology tests reviewed. Plan of care, medication side effects, home medication, diagnostic procedures and available alternatives were discussed and reviewed with patient. All questions answered. Patient verbalized understanding, approved and agreed to plan of care. Given patient's current condition, I certify, in my opinion inpatient services greater than two midnights are medically necessary for this patient. Please see H&P and progress notes for additional information about patient's course of treatment. VTE Mechanical Devices: Intermittant Pneumatic CD Resuscitation Status: CPR: Attempt Resuscitation Joe Coles MD Jul 03, 2017 11:07 VTE Mechanical Devices: Intermittant Pneumatic CD Resuscitation Status: CPR: Attempt Resuscitation Joe Coles MD Jul 03, 2017 11:07
--- NOTE | 2017-07-03 11:19 | PCM.PHAPRO ---
Progress Date of Service: Jul 03, 2017 Warfarin dosing Date Jul 02-Jul 03-Jun INR 1.29 1.13 1.05 INR change -0.16 -0.08 Warf Dose 3MG 3mg 4mg Suni Hinson PharmD Jul 03, 2017 11:19
[2017-07-03] MEDS: metroNIDAZOLE Inj 500 MG in IV Premix 1 EACH IV SCH ×2 (12:57→18:42)
[2017-07-03] MEDS: Heparin 25K Unit/500mL 0.45 NS 25,000 UNIT in IV Premix 1 EACH IV SCH (14:15)
--- NOTE | 2017-07-03 16:55 | NUR ---
Social Work-continued d/c planning: Data:EMR reviewed. Pt is on day 6 of hospitalization for enteritis per H&P. Pt is not medically stable anticipate several more days. Per RN notes, pt has been up independent in her room. Pt has caregiver support at home. No anticipated discharge needs. SW will continue to follow if needs arise. Assessment:Pt who is independent at baseline. Plan:Pt to discharge home when medically stable via POV. No anticipated discharge needs. SW will continue to follow if needs arise. VALENTINO Blair
--- NOTE | 2017-07-03 17:30 | NUR ---
CHIEF MECHANICAL OFFICER DC'd CHIEF MECHANICAL OFFICER per MD order. Administered 20 IR oxycondone prior to discontinuing CHIEF MECHANICAL OFFICER. Confirmed with her pharmacy for MD that she gets ER morphine BID and 20 IR oxycodone Q4H via fax.
[2017-07-03] MEDS: Morphine ER 15 mg (MS Contin) Tablet PO SCH (18:37)
[2017-07-03] MEDS ORDERED: MORPHINE 10 MG PO SCH (20:30)
--- NOTE | 2017-07-03 21:35 | NUR ---
Telemetry Patient concerned with cost of telemetry and wanted to review need for continued monitoring. Will pass request to dayshift.
[2017-07-04 01:34] VITALS: BP 182/83; PULSE 57; RESP 18; O2SAT 95
[2017-07-04] MEDS: Vancomycin 100 mg/mL Oral Solution PO SCH ×4 (01:45→20:00)
[2017-07-04] MEDS: metroNIDAZOLE Inj 500 MG in IV Premix 1 EACH IV SCH ×3 (02:58→20:01)
[2017-07-04 06:04] VITALS: BP 160/81; PULSE 58; RESP 18; O2SAT 94
[2017-07-04] MEDS: Morphine ER 15 mg (MS Contin) Tablet PO SCH ×2 (06:04→18:36)
--- NOTE | 2017-07-04 06:28 | NUR ---
Hypertension / Pain @21:19 172/83 @[id number] = Pain reported at 06/04 with admin of PRN PO 20mg Roxicodone @05:44112/81 aware.
[2017-07-04 07:11] LABS: INR 1.04 ratio
[2017-07-04] MEDS: Polyethylene Glycol (PEG) 17 Gm Powder PO SCH (08:30)
[2017-07-04] MEDS: MeTOProlol XL 25 mg ER24 Tablet PO SCH ×2 (08:59→20:00)
[2017-07-04 09:41] VITALS: BP 135/75; PULSE 59; RESP 18; O2SAT 95
[2017-07-04] MEDS: Heparin 25K Unit/500mL 0.45 NS 25,000 UNIT in IV Premix 1 EACH IV SCH (10:07)
--- NOTE | 2017-07-04 11:39 | PCM.PNMED ---
Subjective Date of Service Jul 04, 2017 Subjective Patient is complaining of loose bowel movements. Exam Vital Signs Vital Sign - Last Date Time Temp Pulse Resp B/P Pulse Ox O2 Delivery O2 Flow Rate FiO2 07/04/17 09:41 36.7 59 18 135/75 95 Room Air Intake and Output 07/03/17 07/03/17 07/04/17 Cumulative From/Thru 15:00 23:00 07:00 06/27/17 02:44 - 07/04/17 06:06 Intake Total 2023 ml 645 ml 68599 ml Output Total 21080 ml Balance 2023 ml 645 ml 6787 ml Intake Oral 860 ml 6868 ml IV Total 1163 ml 645 ml 95840 ml Output Urine Total 51768 ml # Voids 4 4 # Bowel Movements 1 6 Exam PHYSICAL EXAM: GENERAL: Alert, not in distres HEAD: atraumatic, normocephalic, no bruises. EYES: EOMI, anicteric, able to fully open and close eyelids SKIN: Skin color normal, turgor normal. No visible rashes or lesions. EAR, NOSE, MOUTH, THROAT: Lips, oral mucosa, tongue are moist, pink, no lesions. NECK: supple ROM normal. ABDOMEN: Abdomen soft, tender. BS normal. No masses or organomegaly. MUSCULOSKELETAL: ROM full, muscles are not tender EXTREMITIES: no pitting edema in LE, no new deformities or skin discoloration. NEURO: Alert, oriented X 3, Sensation grossly intact., Cranial nerves II-XII intact, Grossly normal motor function. REVIEW OF SYSTEMS: GENERAL: no malaise, no fevers., SEE HPI HEENT: Negative for frequent or significant headaches All other reviewed and negative other than HPI. IVs and Medications Medications Reviewed: Medications were reviewed in detail Lab and Diagnostics Result Diagram: 07/04/1730 07/03/17 0620 X-Rays, CTs and MRIs PROCEDURE: CT ABDOMEN AND PELVIS WITH CONTRAST (PNL-7102) INDICATIONS: severe abd pain IMPRESSION: 1. Focal ileitis with inflamed small bowel loops inferior to the umbilicus in midline, sparing the terminal ileum. Moderate ascites. No bowel obstruction or perforation. Normal appendix. 2. Cholelithiasis without evidence of cholecystitis. 3. Status post hysterectomy. Findings are concordant with the preliminary report. Dictated by: Bello Harrison M.D. 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 Acute Ileitis, C. difficile colitis. - improving , not under control Plan - c/w IV Flagyl to treat ileitis - c/w Vancomycin - Monitor History of mesenteric venous thromboses -Stable - I Discussed with the patient risks of anticoagulation - severe bleeding, intracranial bleed, other severe bleeds. Patient was aware of it. Plan - Continue heparin drip/warfarin by mouth - Check INR daily, adjust warfarin as needed Hypertension - Stable - Continue with current meds History of opioid dependence, -stable - Patient would like to continue with opioids for pain Asthma - Stable - Continue with current meds Narcolepsy - stable -Continue adderral Anxiety - Stable - Continue with current meds DVT PROPHYLAXIS: Heparin/warfarin Code status: Patient would like to be full code Disposition: discharge in 2-3 days after patient improves. Plan of care discussed with the patient; Labs, radiology tests reviewed. Plan of care, medication side effects, home medication, diagnostic procedures and available alternatives were discussed and reviewed with patient. All questions answered. Patient verbalized understanding, approved and agreed to plan of care. Given patient's current condition, I certify, in my opinion inpatient services greater than two midnights are medically necessary for this patient. Please see H&P and MD progress notes for additional information about patient's course of treatment. VTE Mechanical Devices: Intermittant Pneumatic CD Resuscitation Status: CPR: Attempt Resuscitation Joe Coles MD Jul 04, 2017 11:39
--- NOTE | 2017-07-04 11:47 | PCM.PHAPRO ---
Progress Warfarin dosing WARFARIN DOSING PER PHARMACY [facility] MH DFF Date -Jul 02-Jul 03-Jul 04-Jun INR 1.29 1.13 1.05 1.04 INR change -0.16 -0.08 -0.01 Warf Dose 3MG 3mg 4mg 5 MG A/P -Subtherapeutic INR. Downtrending but on heparin gtt. -Will increase dose to warfarin 5 mg this evening. I realize we will not see the effects of dose increase from 07/03/17 but need to combat overall trend of INR. I also realize we may see an increase in INR with Flagyl introduced to therapy. Brady Zhang, PharmD Brady Zhang Jul 04, 2017 11:47
[2017-07-04 13:39] VITALS: BP 115/58; PULSE 61; RESP 18; O2SAT 95
--- NOTE | 2017-07-04 17:51 | PROG NOTE ---
[address] [address] PROGRESS NOTE PATIENT: MARIO STARR : 1965 MR#: [id number] ADMIT: 06/27/2017 JOB ID: [id number] DATE: 07/04/2017 SUBJECTIVE: The patient is having some migrainous symptoms. H and H is stable. She is afebrile. Blood pressures were elevated but under much better control on therapy. She remains on the heparin. INR is still subtherapeutic on Coumadin. She is on treatment with vancomycin but I am quite skeptical that this can all be explained by the simplicity of a C. diff infection. OBJECTIVE: Blood pressure 115/58, pulse 61, breathing 18, temperature 36.7, 95% on room air. The patient was conversational, in no distress. Abdomen is soft. No guarding. No significant tenderness appreciated. She has not had a bowel movement yet today (per patient); two are recorded in the ins and outs. ASSESSMENT AND PLAN: A 51-year-old female with a history of superior mesenteric venous thrombosis requiring long-term anticoagulation. Her presentation with abdominal pain and abnormal imaging was quite concerning for some form of vascular related insult to the small bowel. She has responded clinically thus far with anticoagulation. She was on broad-spectrum antibiotics and they have since been tailored to target C. diff alone. I paged Dr. Sanket Diaz. I think it would be reasonable to attempt to get an echocardiogram before the patient is discharged considering her presentation, just to exclude a source of thrombus from the arterial side of things in the heart. That said, it is thought to be fairly unlikely in that her initial urinalysis did not show any significant RBCs or blood. I will sign off from a GI standpoint for now. Please contact me with any clinical concerns or questions.
[2017-07-04 18:45] VITALS: BP 136/66; PULSE 59; RESP 18; O2SAT 95
[2017-07-04 21:48] VITALS: BP 128/76; PULSE 59; O2SAT 93
[2017-07-05 00:53] VITALS: BP 144/80; PULSE 65; RESP 20; O2SAT 95
--- NOTE | 2017-07-05 02:11 | NUR ---
Headache Pain 6/10 not relieved by Roxicodone, Morphine, Xanax, Caffeine. Received one time order @ 01:10 for Imitrex 50mg PO to good effect.
[2017-07-05] MEDS: metroNIDAZOLE Inj 500 MG in IV Premix 1 EACH IV SCH ×3 (02:57→19:35)
[2017-07-05] MEDS: Vancomycin 100 mg/mL Oral Solution PO SCH ×4 (03:05→21:19)
[2017-07-05] MEDS: Heparin 25K Unit/500mL 0.45 NS 25,000 UNIT in IV Premix 1 EACH IV SCH ×2 (05:16→22:56)
[2017-07-05 06:20] VITALS: BP 156/93; PULSE 51; RESP 20; O2SAT 94
[2017-07-05] MEDS: Morphine ER 15 mg (MS Contin) Tablet PO SCH ×2 (06:27→19:34)
[2017-07-05 06:41] LABS: INR 1.05 ratio
[2017-07-05 08:16] VITALS: BP 153/82; PULSE 61; RESP 20; O2SAT 96
[2017-07-05] MEDS: Polyethylene Glycol (PEG) 17 Gm Powder PO SCH (08:30)
[2017-07-05] MEDS: MeTOProlol XL 25 mg ER24 Tablet PO SCH ×2 (08:55→21:21)
[2017-07-05] MEDS: Lactobacillus Rhamnosus 10 Bil Unit Capsule PO SCH (08:56)
--- NOTE | 2017-07-05 12:23 | PCM.PHAPRO ---
Progress Warfarin dosing Jul 04-Jul 05-Jul 1.05 1.04 1.05 -0.08 -0.01 0.01 4mg 5 MG 10 OT Karel Monroy Pharm.D Jul 05, 2017 12:23
[2017-07-05 12:24] VITALS: BP 107/62; PULSE 60; RESP 20; O2SAT 95
--- NOTE | 2017-07-05 12:57 | PCM.PNMED ---
Subjective Date of Service Jul 05, 2017 Subjective Patient seen and examined. She complains of her pain, however no tachycardia, no signs of stress. Was sleeping comfortably when walked in. Vitals noted. Exam Vital Signs Vital Sign - Last Date Time Temp Pulse Resp B/P Pulse Ox O2 Delivery O2 Flow Rate FiO2 07/05/17 12:24 37.0 60 20 107/62 95 Room Air Intake and Output 07/04/17 07/04/17 07/05/17 Cumulative From/Thru 15:00 23:00 07:00 06/27/17 02:44 - 07/05/17 06:36 Intake Total 150 ml 1719 ml 1258 ml 70378 ml Output Total 750 ml 950 ml 1150 ml 14023 ml Balance -600 ml 769 ml 108 ml 7064 ml Intake Oral 150 ml 858 ml 590 ml 8466 ml IV Total 861 ml 668 ml 78458 ml Output Urine Total 750 ml 950 ml 1150 ml 43111 ml # Voids 4 # Bowel Movements 2 0 8 Exam GENERAL: Alert, not in distres EYES: EOMI, anicteric, able to fully open and close eyelids EAR, NOSE, MOUTH, THROAT: Lips, oral mucosa, tongue are moist, pink, no lesions. ABDOMEN: Abdomen soft, tender. BS normal. No masses or organomegaly. MUSCULOSKELETAL: ROM full, muscles are not tender NEURO: Alert, oriented X 3, Sensation grossly intact., Cranial nerves II-XII intact, Grossly normal motor function. Lab and Diagnostics Result Diagram: 07/04/17 0630 07/03/17 0620 X-Rays, CTs and MRIs PROCEDURE: CT ABDOMEN AND PELVIS WITH CONTRAST ([id number]) INDICATIONS: severe abd pain IMPRESSION: 1. Focal ileitis with inflamed small bowel loops inferior to the umbilicus in midline, sparing the terminal ileum. Moderate ascites. No bowel obstruction or perforation. Normal appendix. 2. Cholelithiasis without evidence of cholecystitis. 3. Status post hysterectomy. Findings are concordant with the preliminary report. Dictated by: Bello Harrison M.D. 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 Acute Ileitis, C. difficile colitis. - still frequent bowel movements - improving , not under control Plan - c/w IV Flagyl to treat ileitis - c/w Vancomycin - Monitor History of mesenteric venous thromboses -Stable - I Discussed with the patient risks of anticoagulation - severe bleeding, intracranial bleed, other severe bleeds. Patient was aware of it. Plan - Continue heparin drip/warfarin by mouth - Check INR daily, adjust warfarin as needed Hypertension - Stable - Continue with current meds History of opioid dependence, -stable - Patient would like to continue with opioids for pain Asthma - Stable - Continue with current meds Narcolepsy - stable -Continue adderral Anxiety - Stable - Continue with current meds DVT PROPHYLAXIS: Heparin/warfarin Code status: Patient would like to be full code Disposition: discharge in 2-3 days after patient improves. Plan of care discussed with the patient; Labs, radiology tests reviewed. Plan of care, medication side effects, home medication, diagnostic procedures and available alternatives were discussed and reviewed with patient. All questions answered. Patient verbalized understanding, approved and agreed to plan of care. Given patient's current condition, I certify, in my opinion inpatient services greater than two midnights are medically necessary for this patient. Please see H&P and MD progress notes for additional information about patient's course of treatment. VTE Mechanical Devices: Intermittant Pneumatic CD Resuscitation Status: CPR: Attempt Resuscitation Time spent 35 mins Dave Kuhn MD Jul 05, 2017 12:57
--- NOTE | 2017-07-05 14:10 | NUR ---
Pain Patient c/o epigastric ache. Roxicodone IR 20mg q4h PRN ordered, c/o pain before medication is due. Also, receives scheduled [facility] ER. Md made aware, possible drug seeking tendencies per Md, no new orders given, K pad given for abd discomfort. Continuing to monitor.
[2017-07-05 16:22] VITALS: BP 130/72; PULSE 55; RESP 20; O2SAT 94
[2017-07-05 20:45] VITALS: BP 165/83; PULSE 57; RESP 20; O2SAT 96
[2017-07-06 00:34] VITALS: BP 124/74; PULSE 58; RESP 20; O2SAT 94
[2017-07-06] MEDS: Vancomycin 100 mg/mL Oral Solution PO SCH ×3 (02:57→14:49)
[2017-07-06] MEDS: metroNIDAZOLE Inj 500 MG in IV Premix 1 EACH IV SCH ×2 (02:58→11:02)
[2017-07-06 05:52] LABS: INR 1.2 ratio
[2017-07-06 06:08] VITALS: BP 124/74; PULSE 57; RESP 20; O2SAT 96
[2017-07-06] MEDS: Morphine ER 15 mg (MS Contin) Tablet PO SCH (06:17)
--- NOTE | 2017-07-06 06:48 | NUR ---
Headache patient indicates the morphine was giving her migraines before admit and wanted to hold AM extended release morphine to see if her headaches diminish.
[2017-07-06] MEDS: MeTOProlol XL 25 mg ER24 Tablet PO SCH (07:53)
[2017-07-06] MEDS: Lactobacillus Rhamnosus 10 Bil Unit Capsule PO SCH (07:53)
[2017-07-06] MEDS: Polyethylene Glycol (PEG) 17 Gm Powder PO SCH (07:54)
[2017-07-06 09:57] VITALS: BP 118/71; PULSE 58; RESP 18; O2SAT 93
--- NOTE | 2017-07-06 11:40 | DRSVH ---
[facility] [address] [place] [address] Echocardiogram Report Name: MARIO STARR LStudy Date: 07/06/2017 Height: 63 in Hospital Exam Location: [facility] Weight: 168 lb Gender: Female BSA: 1.8 m2 : 1965 Age: 51 yrs BP: 124/74 mmHg Reason For Study: MESENTERIC THROMBOSIS Ordering Physician: Performed By: Laci Eagle Referring Physician: KAYY KAUR Interpretation Summary Borderline concentric left ventricular hypertrophy with ejection fraction 60- 65%. Grade I diastolic dysfunction. No valvular abnormality. Procedure: A two-dimensional transthoracic echocardiogram with color flow and Doppler was performed. The study quality was technically good. There is no prior echocardiogram noted for this patient. The patient was in sinus bradycardia with heart rates between 53-60 bpm during the exam. Left Ventricle: The left ventricle is normal in size. There is borderline concentric left ventricular hypertrophy. Trabeculae near apex are visualized. No thrombus is observed. The ejection fraction is estimated to be 60-65%. Left ventricular wall motion is normal. Assessment of diastolic parameters indicates a relaxation abnormality of the left ventricle, consistent with normal filling pressures. Right Ventricle: The right ventricle is normal in size, thickness and function. Atria: The left atrial size is normal. Right atrial size is normal. The interatrial septum is intact with no evidence for an atrial septal defect. Mitral Valve: The mitral valve is normal. There is no mitral regurgitation noted. Aortic Valve: The aortic valve is normal in structure and function. No aortic regurgitation is present. Tricuspid Valve: The tricuspid valve is normal. Pulmonary artery pressures cannot be estimated because of the lack of a measurable TR jet velocity. Pulmonic Valve: The pulmonic valve leaflets are thin and pliable; valve motion is normal. There is mild pulmonic regurgitation. Great Vessels: The aortic root is normal size. The ascending aorta is normal in size. The pulmonary artery is normal size. The IVC is of normal diameter and collapses greater than 50% with a sniff. This suggests a low right atrial pressure of 3 mm Hg. Pericardium/ Pleura There is no pericardial effusion. There is no pleural effusion. MMode/2D Measurements & Calculations LVIDd: 4.3 cm RA long axis LVOT diam: 2.0 cm LVIDs: 2.5 cm LA A2 area: 14.7 cm AoV Opening FS: 40.7 % LA A4 area: 21.3 cm RA area EPSS: 0.26 cm LA length (vol) Ao root diam IVSd: 1.1 cm : 12.4 cm LVPWd: 0.97 cm LA vol: 53.7 ml RA vol asc Aorta Diam LA vol index : 25.8 ml RA Ao Arch Diam (Prox : 29.9 ml/m2 : 14.4 mm2 Trans): 3.3 cm LV cramer. diameter/BSA LV sys. diameter/BSA RVD1 (basal) (cm/m^2): 2.4 (cm/m^2): 1.4 Doppler Measurements & Calculations Ao V2 max: 124.8 cm/sec MV E max kurt MV E/A: 0.72 PA V2 max Ao max P.2 mmHg : 48.0 cm/sec : 74.9 cm/sec Ao mean P.9 mmHg MV A max kurt PA mean PG LVOT Max Kurt : 66.5 cm/sec : 1.5 mmHg : 100.3 cm/sec CLAY(I,D): 2.9 cm sev ratio: 0.89 MV dec time: 0.25 sec Ao V2 mean LV V1 max PG PA V2 mean : 81.8 cm/sec : 58.9 cm/sec Ao V2 VTI: 24.1 cmLV V1 VTI PA pr(Accel) CLAY(V,D): 2.6 cm2 : 21.5 cm : 41.6 mmHg CLAY indexed to [facility] (cm^2/m^2): 1.6 Electronically signed by: Kamala Toth on Reading Physician:07/06/2017 11:39 AM
--- NOTE | 2017-07-06 11:44 | PCM.PHAPRO ---
Progress Date of Service: Jul 06, 2017 Warfarin dosing Date Jul 02-Jul 03-Jul 04-Jul 05-Jul 06-Jun INR 1.29 1.13 1.05 1.04 1.05 1.20 INR change -0.16 -0.08 -0.01 0.01 0.15 Warf Dose 3MG 3mg 4mg 5 MG 10 OT 10MG Per discussion with provider, patient to transition from IV heparin to subcut enoxaparin. Recommend starting enoxaparin 1mg/kg subcut q12h. Suni Hinson PharmD Jul 06, 2017 11:44
[2017-07-06 12:29] VITALS: BP 151/80; PULSE 61; RESP 16; O2SAT 93
[2017-07-06] MEDS ORDERED: AMLO5TAB2 PO (14:03)
[2017-07-06] MEDS ORDERED: VANC1VIA13 PO (15:06)
--- NOTE | 2017-07-06 15:06 | PCM.DIMED ---
Discharge Instructions Date of Service Jul 06, 2017 Dates of Hospitalization Jun 27, 2017 at 11:07 Patient Instructions Patient Instructions Follow up at coumadin clinic for PT/INR PCP follow up Follow-up with PCP in: Other (as per discharge instruction) Dave Kuhn MD Jul 06, 2017 15:06
[2017-07-06] MEDS ORDERED: LOV80 SUBQ (15:10)
[2017-07-06] MEDS ORDERED: OXYC20TA4 PO (15:31)
[2017-07-06] MEDS ORDERED: SUMA25TA3 PO (15:31)
[2017-07-06] MEDS ORDERED: MORP-32 PO (15:31)
--- NOTE | 2017-07-06 15:40 | NUR ---
Discharge Patient given discharge orders. Patient given hard copies of prescriptions. Patient given medication list. Patient given follow up instructions with appointments made. Patient IV's removed fully intact and asymptomatic. Patient boyfriend was explained how to administer Enoxaparin shots for home use. Assisted to main entrance.
--- NOTE | 2017-07-06 20:40 | PCM.DC.MED ---
Discharge Summary Date of Service Jul 06, 2017 Dates of Hospitalization Date of Hospital Admission Jun 27, 2017 at 11:07 Date of Discharge: Jul 06, 2017 Providers: Admitting Physician: Ha Ruby MD Primary Care Physician: Asha Napier Attending Physician: Kayy Kaur MD Procedures XRay, CTs & MRIs PROCEDURE: CT ABDOMEN AND PELVIS WITH CONTRAST ([id number]) INDICATIONS: severe abd pain IMPRESSION: 1. Focal ileitis with inflamed small bowel loops inferior to the umbilicus in midline, sparing the terminal ileum. Moderate ascites. No bowel obstruction or perforation. Normal appendix. 2. Cholelithiasis without evidence of cholecystitis. 3. Status post hysterectomy. Findings are concordant with the preliminary report. Dictated by: Bello Harrison M.D. on 06/27/2017 at 8:38 Brief History Gastroenterology Consult Note Grace Pagan is a 51-year-old female with past medical history significant for superior mesenteric venous thrombosis, hepatitis C status post Harvoni treatment, subarachnoid hemorrhage, and chronic opioid use who presents with nausea, vomiting, and diarrhea. Patient reports that symptoms began on Sunday very shortly after eating prawns. Patient states that pain has been between 8- 10 out of 10 since Sunday. It is a constant pain that is bandlike at the level of the umbilicus. There are no alleviating factors and appears that movement somewhat worsens the pain. Pain has slightly improved since being in the hospital with IV pain medications. Of note patient's friend was also having the problems and had some similar but more mild symptoms that resolved without intervention. She has not had any oral intake since Sunday as she has not been able to keep anything down. She states that her last episode of emesis and diarrhea was just prior to the ambulance arriving around 0300 today. Patient is typically constipated as she is on chronic narcotics so this frequent stooling is very atypical. She notes that there is blood when she wipes but nothing mixed in with her stool. She denies black tarry stools or hematemesis. Patient has no family history of inflammatory bowel disease, colon cancer, or celiac disease. She has never had a colonoscopy or an EGD. Patient denies any recent weight loss, fever, or chills. 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 Acute Ileitis, C. difficile colitis. - improved, bowel movements X 2 per day - tolerating po meds Plan - c/w vancomycin oral to complete the course for Cdiff History of mesenteric venous thromboses -Stable - I Discussed with the patient risks of anticoagulation - severe bleeding, intracranial bleed, other severe bleeds. Patient was aware of it. Plan - Continue lovenox with warfarin - patient to follow at coumadin clinic Hypertension - Stable - Continue with current meds History of opioid dependence, -stable - Patient would like to continue with opioids for pain Asthma - Stable - Continue with current meds Narcolepsy - stable -Continue adderral Anxiety - Stable - Continue with current meds Exam Vital Signs (Last) Date Time Temp Pulse Resp B/P Pulse Ox O2 Delivery O2 Flow Rate FiO2 07/06/17 12:29 36.6 61 16 151/80 93 Room Air Test 06/27/17 02:55 06/27/17 10:39 06/27/17 18:00 06/28/17 06:00 Lipase 19U/L (13-60) Urine Color Yellow (YELLOW) Urine Appearance Hazy (CLEAR,HAZY) Urine pH 5.0 (5.0-8.0) Urine Specific [place] 1.015 (1.003-1.035) Urine Protein Tracemg/dL (NEG,TRACE) Urine Glucose (UA) Negativemg/dL (NEGATIVE) Urine Ketones Negativemg/dL (NEGATIVE) Urine Occult Blood Negative (NEGATIVE) Urine Nitrite Negative (NEGATIVE) Urine Bilirubin Negative (NEGATIVE) Urine Urobilinogen Normalmg/dL (NORMAL) Urine Leukocyte Esterase Negative (NEGATIVE) Urine RBC 0-2/hpf (0-2) Urine WBC 0-5/hpf (0-5) Urine Epithelial Cells Occasional/hpf (NONE-MOD) Urine Crystals Uric acid crystals (NONE Urine Bacteria None/hpf (NONE-FEW) Urine Hyaline Casts None/lpf (NONE) Urine Granular Casts None seen (NONE SEEN) Urine Waxy Casts None seen (NONE SEEN) Urine Red Blood Cell Casts None seen (NONE SEEN) Urine White Blood Cell Casts None seen (NONE SEEN) Urine Mucus None seen (None Seen) Urine Trichomonas None seen (NONE SEEN) Urine Yeast None (NONE SEEN) Urinalysis Comment None Urine Culture Reflexed Not indicated D-Dimer 12.44mg/L FEU (<0.50) Magnesium Level 1.9mg/dL (1.6-2.6) Total Bilirubin 0.4mg/dL (0.0-1.2) Aspartate Amino Transf (AST/SGOT) 12U/L (0-50) Alanine Aminotransferase (ALT/SGPT) 8U/L (0-32) Alkaline Phosphatase 68U/L (25-150) Total Protein 5.4g/dL (6.4-8.4) Albumin 3.0g/dL (3.4-5.0) Test 07/01/17 06:12 07/03/17 06:20 07/06/17 05:15 Lactic Acid Level 1.6mmol/L (0.4-2.0) White Blood Count 8.8th/mm3 (3.8-10.1) Red Blood Count 4.40mil/mm3 (3.90-5.20) Mean Corpuscular Volume 82.0fL (81-100) Mean Corpuscular Hemoglobin 26.8pg (27.0-35.0) Mean Corpuscular Hemoglobin Concent 32.7% (32.0-37.0) Red Cell Distribution Width 14.0% (12.3-15.4) Neutrophils (%) (Auto) 49.2% (40-74) Lymphocytes (%) (Auto) 36.8% (14-46) Monocytes (%) (Auto) 8.7% (4-12) Eosinophils (%) (Auto) 4.0% (0-5) Basophils (%) (Auto) 0.7% (0-3) Sodium Level 139mEq/L (134-144) Potassium Level 4.6mEq/L (3.5-5.2) Chloride Level 106mEq/L (97-108) Carbon Dioxide Level 21mmol/L (18-29) Blood Urea Nitrogen 12mg/dL (6-24) Creatinine 0.83mg/dL (0.57-1.00) Estimat Glomerular Filtration Rate 103mL/min (>59) Glucose Level 91mg/dL (60-99) Calcium Level 9.5mg/dL (8.5-10.1) Procalcitonin 0.10ng/mL (0.00-0.08) Hemoglobin 12.6g/dL (12.0-15.6) Hematocrit 39.4% (35.0-46.0) Platelet Count 401bil/L (150-400) Prothrombin Time 12.9sec (8.1-12.5) Prothromb Time International Ratio 1.20ratio Activated Partial Thromboplast Time 71.0sec (22.8-33.0) Discharge Medications Discharge Medications Amlodipine (Amlodipine) 5 Mg Tablet 5 MG PO DAILY Prescribed by: KAYY KAUR MD Dextroamphetamine/Amphetamine ER (Dextroamphetamine/Amphetamine ER) 30 Mg Capsule 30-60 MG PO DAILY (Reported) Enoxaparin (Lovenox) 80 Mg/0.8 Ml Syringe 80 MG SUBQ Q12 Prescribed by: KAYY KAUR MD Escitalopram Oxalate (Escitalopram Oxalate) 20 Mg Tablet 20 MG PO DAILY ( Reported) Estrogens, Conjugated (Premarin) 0.3 Mg Tablet 0.3 MG PO DAILY (Reported) Metoprolol Succinate ER (Metoprolol Succinate ER) 25 Mg Tab.er.24h 12.5 MG PO QAM (Reported) Vancomycin (Vancomycin) 1 Gm Vial 250 MG PO Q6 Prescribed by: KAYY KAUR MD Warfarin Sodium (Warfarin Sodium) 3 Mg Tablet 3 MG PO Mon,Wed,Leora,Fri,Sun ( Reported) Warfarin Sodium (Warfarin Sodium) 3 Mg Tablet 6 MG PO Sun,Sun (Reported) As needed Alprazolam (Alprazolam) 2 Mg Tablet 2 MG PO TID PRN PRN For Anxiety or Agitation (Reported) Clonazepam (Clonazepam) 2 Mg Tab 2 MG PO HS PRN PRN For Anxiety (Reported) Morphine Sulfate ER (Morphine Sulfate ER) 15 Mg Tablet 15 MG PO Q12Hrs PRN PRN For Pain Prescribed by: KAYY KAUR MD Sumatriptan Succinate (Sumatriptan Succinate) 25 Mg Tablet 25 MG PO DAILY PRN PRN Headache Prescribed by: KAYY KAUR MD oxyCODONE (oxyCODONE) 20 Mg Tablet 20 MG PO Q4H PRN PRN For Pain Prescribed by: KAYY KAUR MD Followup Plan Patient Instructions Follow up at coumadin clinic for PT/INR PCP follow up Follow-up with PCP in: Other (as per discharge instruction) Time spent 35 mins Kayy Kaur MD Jul 06, 2017 20:39
== END 2017-07-06 16:02 | disposition home or self-care (01) | DRG 391 ==
LOC: EDBD 02:25 → EDUNIT# 02:25 → EDSEX 02:25 → SED 02:25 → MPC 11:07 → OBSVTOIN 11:07
PROVIDERS: ADMIT Hospitalist; ATTEND Internal Medicine
DX: K52.9 Noninfective gastroenteritis and colitis, unspecified (principal); I81 Portal vein thrombosis; F11.20 Opioid dependence, uncomplicated; A04.7 Enterocolitis due to Clostridium difficile; Z86.718 Personal history of other venous thrombosis and embolism; Z79.01 Long term (current) use of anticoagulants; I10 Essential (primary) hypertension; G89.29 Other chronic pain; F17.200 Nicotine dependence, unspecified, uncomplicated; Z86.19 Personal history of other infectious and parasitic diseases; G47.419 Narcolepsy without cataplexy; F41.9 Anxiety disorder, unspecified